=== PATIENT | female | born 1940 | race Caucasian/White ===

== ENCOUNTER → 2017-12-18 | Outpatient (CLI) | payer MEDICARE ==
--- NOTE | 2017-12-18 09:46 | Diagnostic Imaging Report ---
INDICATION: Lump in the left back at the level of the mid spine. FINDINGS: Sonographic interrogation of the area of lump was performed. No solid or cystic mass is identified by ultrasound. IMPRESSION: No sonographic abnormality is detected. Dictated by: Dictated on workstation # [id number]
== END ==
LOC: RAD 08:56
PROVIDERS: ATTEND Nurse Practitioner Family
DX: R22.2 Localized swelling, mass and lump, trunk (principal)
CPT/HCPCS: 76999

== ENCOUNTER 2019-06-04 19:33 | Emergency (ER) | payer MEDICARE | END 2019-06-04 23:46 | disposition home or self-care (01) | LOC: ER 19:33 ==

== ENCOUNTER 2021-09-03 08:48 | Emergency (ER) | payer MEDICARE, OTHER ==
[~2021-09-03] VITALS: Ht 152 cm; Wt 54.0 kg
[~2021-09-03 08:48] MED LIST: ACHD5005 PO
--- OUTSIDE RECORDS SUMMARY | 2021-09-03 08:54 | XMS REPORT | Clinical Summary ---
Author Author [email or web address] Address Unknown Phone Unavailable Care Team Providers Care Short Goods Drier Name Role Phone PCP Unavailable Allergies No known active allergies Medications End Date Status Medication Sig Dispensed Refills Start Date Active desonide (DESOWEN) 0.05 % 0 cream 5 Active ranitidine (ZANTAC) 150 TAKE ONE 60 tablet 3 MG tablet TABLET BY 6 MOUTH TWICE DAILY FOR HIVES Active cetirizine (ZYRTEC) 10 MG TAKE ONE 60 tablet 2 tablet TABLET BY 6 MOUTH TWICE DAILY Active Problems Problem Noted Date Urticaria, unspecified 09/02/2014 Family History Medical History Relation Name Comments Coronary art dis Father Osteoporosis Mother Relation Name Status Comments Father Mother Social History Date Tobacco Use Types Packs/Day Years Used Never Smoker Smokeless Tobacco: Never Used Comments Alcohol Use Standard Drinks/Week No 0 (1 standard drink = 0.6 o z pure alcohol) Sex Assigned at Date Recorded Not on file Last Filed Vital Signs Reading Time Taken Comments Vital Sign 108/64 09/02/2014 11:01 AM CDT Blood Pressure 91 09/02/2015 2:03 PM CDT Pulse 36.4 C (97.5 F) 09/02/2014 11:01 AM CDT Temperature 20 09/02/2015 2:03 PM CDT Respiratory Rate 99% 09/02/2015 2:03 PM CDT Oxygen Saturation - - Inhaled Oxygen Concentration 59 kg (130 lb) 09/02/2015 2:03 PM CDT Weight 152.4 cm (5') 09/02/2015 2:03 PM CDT Height 25.39 09/02/2015 2:03 PM CDT Body Mass Index Plan of Treatment Health Maintenance Due Date Last Done Comments COVID-19 Vaccine (1) 1954 Annual Wellness Visit 1960 Hepatitis C Screening 1960 DTaP,Tdap,and Td Vaccines 1961 (1 - Tdap) Zoster Vaccine (1 of 2) 1992 Pneumo-Vaccine: 65+Yrs (1 2007 of 1 - PPSV23) Influenza Vaccine (#1) 2021 HIB Vaccines Aged Out No longer eligible based on patient's age to complete this topic IPV Vaccines Aged Out No longer eligible based on patient's age to complete this topic Meningococcal Vaccine Aged Out No longer eligib le based on patient's age to complete this topic Pneumo-Vaccine: Peds (0-5 Aged Out No longer el igible based on patient's age to Yrs) & At-Risk Patients complete this topic (6-64 Yrs) Rotavirus Vaccines Aged Out No longer eligible based on patient's age to complete this topic Results Not on filefrom Last 3 Months Insurance Type Payer Benefit Subscriber ID Effective Phone Address Plan / Dates Group Medicare MEDICARE MEDICARE [id number] 2007- [address] Present [address] [place] [address] [facility] 65 [id number] 2013-P [phone] [address] (NEVER resent [facility]) [id number] Advance Directives For more information, please contact: [phone] Patient Gut Sorter Explanation Type Date Recorded Advance Directives and Living Will Power of Coat Maker
--- NOTE | 2021-09-03 10:33 | ED GI ---
General Stated Complaint: NAUSEA,DIARRHEA Source of Information: Patient Exam Limitations: No Limitations (JENS KIRKLAND APRN) History of Present Illness Date Seen by Provider: Sep 03, 2021 Time Seen by Provider: 10:32 Initial Comments To ER with some nausea earlier this morning as well as one episode of loose stool with abdominal cramping. She has no symptoms currently. No fever no chills no body aches. She is Covid vaccinated. Timing/Duration: 1-2 Days Severity/Quality: Moderate Location: Generalized Abdomen Radiation: No Radiation Activities at Onset: None Associated Symptoms: Denies Symptoms (JENS KIRKLAND APRN) Allergies and Home Medications Allergies Coded Allergies: No Allergy Information Available (Unverified , 06/04/19) Patient Home Medication List Home Medication List Reviewed: Yes (JENS KIRKLAND APRN) Ciprofloxacin HCl (Ciprofloxacin HCl) 500 Mg Tablet, 500 MG PO BID Prescribed by: JENS KIRKLAND on 09/03/21 1228 Hydrocodone Bit/Acetaminophen (Lortab 5 Mg Tablet) 1 Tab Tab, 1 EACH PO Q4H PRN for PAIN-MODERATE Prescribed by: GUILLE AYALA on 06/04/192134 Metronidazole (Flagyl) 500 Mg Tablet, 500 MG PO TID Prescribed by: JENS KIRKLAND on 09/03/21 1228 Review of Systems Review of Systems Constitutional: see HPI EENTM: No Symptoms Reported Respiratory: No Symptoms Reported Cardiovascular: No Symptoms Reported Gastrointestinal: See HPI, Abdominal Pain Genitourinary: No Symptoms Reported Musculoskeletal: no symptoms reported Skin: no symptoms reported Psychiatric/Neurological: No Symptoms Reported Endocrine: No Symptoms Reported Hematologic/Lymphatic: No Symptoms Reported (JENS KIRKLAND APRN) Past Etrvfim-Kfxohq-Mntbvv Hx Past Medical History Surgeries: Yes Hysterectomy Respiratory: No Cardiac: No Neurological: No DISH MAKER History: Hysterectomy, Menopausal Genitourinary: No Gastrointestinal: No Musculoskeletal: No Endocrine: No HEENT: No Cancer: No Psychosocial: No Integumentary: No Blood Disorders: No (JENS KIRKLAND APRN) Physical Exam Vital Signs Vital Signs - First Documented 09/03/21 09:35 Temp 36.4 Pulse 120 Resp 20 B/P (MAP) 135/78 (97) Pulse Ox 99 O2 Delivery Room Air (DENISE NAYLOR MD) Vital Signs Capillary Refill : (JENS KIRKLAND APRN) Height/Weight/BMI Height: 5'0" Weight: 123lbs. 0oz. 55.613153aa; BMI Method:Actual General Appearance: WD/WN, no apparent distress Respiratory: lungs clear, normal breath sounds, no respiratory distress, no accessory muscle use Cardiovascular: regular rate, rhythm, no murmur Gastrointestinal: normal bowel sounds, non tender, soft Extremities: normal range of motion, non-tender Neurologic/Psychiatric: alert, normal mood/affect, oriented x 3 Skin: normal color, warm/dry (JENS KIRKLAND APRN) Progress/Results/Core Measures Results/Orders Lab Results Laboratory Tests Test 09/03/21 09:43 09/03/21 10:30 09/03/21 11:30 Range/Units SARS-CoV-2 RNA (RT-PCR) Not Detected Not Detecte White Blood Count 19.1 H 4.3-11.0 10^3/uL Red Blood Count 5.08 3.80-5.11 10^6/uL Hemoglobin 13.5 11.5-16.0 g/dL Hematocrit 42 35-52 % Mean Corpuscular Volume 84 80-99 fL Mean Corpuscular Hemoglobin 27 25-34 pg Mean Corpuscular Hemoglobin Concent 32 32-36 g/dL Red Cell Distribution Width 14.5 10.0-14.5 % Platelet Count 396 130-400 10^3/uL Mean Platelet Volume 9.3 9.0-12.2 fL Immature Granulocyte % (Auto) 1 % Neutrophils (%) (Auto) 86 H 42-75 % Lymphocytes (%) (Auto) 7 L 12-44 % Monocytes (%) (Auto) 6 0-12 % Eosinophils (%) (Auto) 0 0-10 % Basophils (%) (Auto) 1 0-10 % Neutrophils # (Auto) 16.3 H 1.8-7.8 10^3/uL Lymphocytes # (Auto) 1.3 1.0-4.0 10^3/uL Monocytes # (Auto) 1.2 H 0.0-1.0 10^3/uL Eosinophils # (Auto) 0.1 0.0-0.3 10^3/uL Basophils # (Auto) 0.1 0.0-0.1 10^3/uL Immature Granulocyte # (Auto) 0.1 0.0-0.1 10^3/uL Neutrophils % (Manual) 90 % Lymphocytes % (Manual) 4 % Monocytes % (Manual) 6 % Eosinophils % (Manual) 0 % Basophils % (Manual) 0 % Band Neutrophils 0 % Blood Morphology Comment NORMAL Sodium Level 137 135-145 MMOL/L Potassium Level 4.0 3.6-5.0 MMOL/L Chloride Level 101 98-107 MMOL/L Carbon Dioxide Level 24 21-32 MMOL/L Anion Gap 12 5-14 MMOL/L Blood Urea Nitrogen 16 7-18 MG/DL Creatinine 0.92 0.60-1.30 MG/DL Estimat Glomerular Filtration Rate 59 BUN/Creatinine Ratio 17 Glucose Level 114 H 70-105 MG/DL Calcium Level 9.9 8.5-10.1 MG/DL Corrected Calcium 9.6 8.5-10.1 MG/DL Magnesium Level 2.1 1.6-2.4 MG/DL Total Bilirubin 0.7 0.1-1.0 MG/DL Aspartate Amino Transf (AST/SGOT) 19 5-34 U/L Alanine Aminotransferase (ALT/SGPT) 16 0-55 U/L Alkaline Phosphatase 98 40-136 U/L Total Protein 8.4 H 6.4-8.2 GM/DL Albumin 4.4 3.2-4.5 GM/DL Urine Color YELLOW Urine Clarity CLEAR Urine pH 7.5 5-9 Urine Specific [place] 1.015 L 1.016-1.022 Urine Protein NEGATIVE NEGATIVE Urine Glucose (UA) NEGATIVE NEGATIVE Urine Ketones TRACE H NEGATIVE Urine Nitrite NEGATIVE NEGATIVE Urine Bilirubin NEGATIVE NEGATIVE Urine Urobilinogen 0.2 < = 1.0 MG/DL Urine Leukocyte Esterase NEGATIVE NEGATIVE Urine RBC (Auto) NEGATIVE NEGATIVE Urine RBC NONE /HPF Urine WBC NONE /HPF Urine Squamous Epithelial Cells 2-5 /HPF Urine Crystals NONE /LPF Urine Bacteria NEGATIVE /HPF Urine Casts NONE /LPF Urine Mucus NEGATIVE /LPF Urine Culture Indicated NO (DENISE NAYLOR MD) My Orders Orders - DENISE NAYLOR MD Cbc With Automated Diff (09/03/21 09:39) Comprehensive Metabolic Panel (09/03/21 09:39) Magnesium (09/03/21 09:39) Ua Culture If Indicated (09/03/21 09:39) Ed Iv/Invasive Line Start (09/03/21 09:39) Manual Differential (09/03/21 10:30) (DENISE NAYLOR MD) Medications Given in ED Current Medications Medications Dose Ordered Sig/Jem Route Start Time Stop Time Status Last Admin Dose Admin Ceftriaxone Sodium 1000 mg/ Sterile Water 10 ml @ 200 mls/hr ONCE ONCE IV 09/03/21 12:30 09/03/21 12:32 DC 09/03/21 12:48 200 MLS/HR Metronidazole 500 mg ONCE ONCE PO 09/03/21 12:30 09/03/21 12:31 DC 09/03/21 12:49 500 MG (DENISE NAYLOR MD) Vital Signs/I&O 09/03/21 09/03/21 09:35 12:55 Temp 36.4 Pulse 120 88 Resp 20 18 B/P (MAP) 135/78 (97) 146/88 Pulse Ox 99 97 O2 Delivery Room Air Room Air (DENISE NAYLOR MD) Departure Communication (Admissions) 1151-I recommended IV fluids but the patient declined. Did a CT scan which we tried to do with IV contrast but the patient refused that as well. As such we will do the CT without contrast. 1215-CT mentions possibility of choledocholithiasis given the prominence of the common bile duct however her labs do not support this and she is nontender to the right upper quadrant. However, she did have some right shoulder blade pain a few days ago. She will need an outpatient gallbladder ultrasound. In the meantime we will treat with Cipro/Flagyl for sigmoid diverticulitis. She has no abdominal pain at this time, minimal tenderness to the left lower quadrant. No tenderness to the right upper quadrant. (JENS KIRKLAND APRN) Impression Primary Impression: Sigmoid diverticulitis Additional Impression: Cholelithiasis Disposition: 01 HOME, SELF-CARE Condition: Stable Departure-Patient Inst. Decision time for Depature: 12:16 (JENS KIRKLAND APRN) Referrals: PRINCE BERG MD (PCP/Family) Primary Care Physician Patient Instructions: Diverticulitis, Gallstones ED Add. Discharge Instructions: 1. Take the antibiotics as directed. Return to ER for any fevers chills vomiting or intolerable pain. You need to follow-up with your primary care doctor next week to discuss an ultrasound of the gallbladder as you do have some stones within the gallbladder. Scripts Metronidazole (Flagyl) 500 Mg Tablet 500 MG PO TID, #21 TAB Prov: JENS KIRKLAND ATMOSPHERIC TECHNICIAN 09/03/21 Ciprofloxacin HCl (Ciprofloxacin HCl) 500 Mg Tablet 500 MG PO BID, #14 TAB Prov: JENS KIRKLAND ATMOSPHERIC TECHNICIAN 09/03/21 ATTENDING PHYSICIAN NOTE: I was physically present as attending physician in the emergency department during the care of this patient. After reviewing chief complaint initial orders were entered. Care was then assumed by Jens Kirkland NP. I was not directly involved in the decision making or delivery of care for this patient after placing initial orders. (DENISE NAYLOR MD) JENS KIRKLAND APRN Sep 03, 2021 10:33 DENISE NAYLOR MD Sep 03, 2021 17:16
[2021-09-03 10:36] LABS: BASOPHILS # (AUTO) 0.1 10^3/uL (0.0-0.1); BASOPHILS % (AUTO) 1 % (0-10); EOSINOPHILS # (AUTO) 0.1 10^3/uL (0.0-0.3); EOSINOPHILS % (AUTO) 0 % (0-10); HEMATOCRIT 42 % (35-52); HEMOGLOBIN 13.5 g/dL (11.5-16.0); LYMPHOCYTES # (AUTO) 1.3 10^3/uL (1.0-4.0); LYMPHOCYTES % (AUTO) 7 % (12-44); MEAN CORPUSCULAR HEMOGLOBIN 27 pg (25-34); MEAN CORPUSCULAR HGB CONC 32 g/dL (32-36); MEAN CORPUSCULAR VOLUME 84 fL (80-99); MEAN PLATELET VOLUME 9.3 fL (9.0-12.2); MONOCYTES # (AUTO) 1.2 10^3/uL (0.0-1.0); MONOCYTES % (AUTO) 6 % (0-12); NEUTROPHILS # (AUTO) 16.3 10^3/uL (1.8-7.8); NEUTROPHILS % (AUTO) 86 % (42-75); PLATELET COUNT 396 10^3/uL (130-400); WHITE BLOOD COUNT 19.1 10^3/uL (4.3-11.0)
[2021-09-03 10:48] LABS: ALBUMIN 4.4 GM/DL (3.2-4.5)
[2021-09-03 10:49] LABS: CALCIUM 9.9 MG/DL (8.5-10.1)
[2021-09-03 10:50] LABS: TOTAL PROTEIN 8.4 GM/DL (6.4-8.2)
[2021-09-03 10:52] LABS: BILIRUBIN,TOTAL 0.7 MG/DL (0.1-1.0)
[2021-09-03 10:54] LABS: CREATININE SERUM 0.92 MG/DL (0.60-1.30)
[2021-09-03 10:57] LABS: MAGNESIUM 2.1 MG/DL (1.6-2.4)
[2021-09-03] MEDS ORDERED: NS IV 500 ML 500 ML IV SCH (11:00)
[2021-09-03 11:31] LABS: BAND NEUTROPHILS 0 %; BASOPHILS % (MANUAL) 0 %; EOSINOPHILS % (MANUAL) 0 %; LYMPHOCYTES % (MANUAL) 4 %; MONOCYTES % (MANUAL) 6 %; NEUTROPHILS % (MANUAL) 90 %; RBC MORPH NORMAL
[2021-09-03 11:36] LABS: BILIRUBIN,URINE NEGATIVE (NEGATIVE); CLARITY,URINE CLEAR; COLOR,URINE YELLOW; GLUCOSE, URINE (UA) NEGATIVE (NEGATIVE); KETONES,URINE TRACE (NEGATIVE); LEUKOCYTE ESTERASE ,URINE NEGATIVE (NEGATIVE); NITRITE,URINE NEGATIVE (NEGATIVE); PH,URINE 7.5 (5-9); PROTEIN,URINE NEGATIVE (NEGATIVE)
[2021-09-03 11:45] LABS: BACTERIA,URINE NEGATIVE /HPF
[2021-09-03] MEDS ORDERED: HOLD METFORMIN - RECEIVED CONTRAST 20 ML VIAL IV SCH (12:00)
[2021-09-03] MEDS ORDERED: NS 100 ML (IVPB) BAG IV ONE (12:00)
[2021-09-03] MEDS ORDERED: IOHEXOL 350 MG/ML 100 ML (OMNIPAQUE 350) VIAL IV ONE (12:00)
--- NOTE | 2021-09-03 12:13 | Diagnostic Imaging Report ---
PROCEDURE: CT abdomen and pelvis without contrast. TECHNIQUE: Multiple contiguous axial images were obtained through the abdomen and pelvis without the use of intravenous contrast. Auto Exposure Controls were utilized during the CT exam to meet ALARA standards for radiation dose reduction. INDICATION: Clammy and sweaty with diarrhea, similar symptoms last week. Nausea. EXAMINATION: CT abdomen pelvis without contrast. Contrast not given as patient refused. FINDINGS: There is fat stranding and inflammatory change about the sigmoid colon with a few diverticuli in the region noted findings likely due to diverticulitis. There is no evidence for adjacent free air or abscess. The appendix is not seen but there is no focal inflammation in the right lower quadrant. There is fluid in the distal esophagus perhaps due to reflux. A small hiatal hernia suspected. The abdominal viscera limited given lack of contrast. No gross abnormality appreciated within the spleen, liver, adrenal glands or pancreas. There are multiple hyperdensities within the gallbladder consistent with stones better characterized sonographically if clinically indicated. The common duct appears slightly distended measuring up to a centimeter in size. Choledocholithiasis not excluded on this examination. The kidneys appear unremarkable. The osseous structures demonstrate old pelvic fractures with no acute osseous abnormality. There is degenerative disease within the visualized spine. Visualized lung bases demonstrate chronic atelectasis or scarring in the medial lower lungs. IMPRESSION: 1. Inflammatory change about the sigmoid colon suspicious for acute diverticulitis. 2. Stones within the gallbladder with choledocholithiasis not excluded given prominence of the common duct. Sonographic characterization could provide better evaluation as clinically indicated. Other findings as above. Dictated by: Dictated on workstation # [id number]
[2021-09-03] MEDS ORDERED: METR500T PO (12:28)
[2021-09-03] MEDS ORDERED: CIPR500T5 PO (12:28)
[2021-09-03] MEDS ORDERED: cefTRIAXone 1,000 MG in WATER (STERILE) FOR INJECTION 10 ML IV ONE (12:30)
[2021-09-03] MEDS ORDERED: metroNIDAZOLE 500 MG (FLAGYL) TAB PO ONE (12:30)
[2021-09-03 12:55] VITALS: BP 146/88
== END 2021-09-03 12:55 | disposition home or self-care (01) ==
LOC: EDUNIT# 08:48 → ER 08:50
DX: K57.32 Diverticulitis of large intestine without perforation or abscess without bleeding (principal); K80.20 Calculus of gallbladder without cholecystitis without obstruction; Z20.822 Contact with and (suspected) exposure to COVID-19
CPT/HCPCS: 36415; 74176; 80053; 81000; 83735; 85007; 85027; 87636

== ENCOUNTER 2021-09-06 08:58 | Emergency (ER) | payer MEDICARE, OTHER ==
[~2021-09-06] VITALS: Ht 152.4 cm; Wt 54.5 kg
[~2021-09-06 08:58] MED LIST changes: +CIPR500T5 PO; +METR500T PO
[2021-09-06 09:17] LABS: BASOPHILS # (AUTO) 0.1 10^3/uL (0.0-0.1); BASOPHILS % (AUTO) 1 % (0-10); EOSINOPHILS # (AUTO) 0.3 10^3/uL (0.0-0.3); EOSINOPHILS % (AUTO) 3 % (0-10); HEMATOCRIT 39 % (35-52); HEMOGLOBIN 12.3 g/dL (11.5-16.0); LYMPHOCYTES # (AUTO) 0.9 10^3/uL (1.0-4.0); LYMPHOCYTES % (AUTO) 8 % (12-44); MEAN CORPUSCULAR HEMOGLOBIN 27 pg (25-34); MEAN CORPUSCULAR HGB CONC 32 g/dL (32-36); MEAN CORPUSCULAR VOLUME 84 fL (80-99); MEAN PLATELET VOLUME 9.5 fL (9.0-12.2); MONOCYTES # (AUTO) 0.6 10^3/uL (0.0-1.0); MONOCYTES % (AUTO) 6 % (0-12); NEUTROPHILS % (AUTO) 83 % (42-75); PLATELET COUNT 408 10^3/uL (130-400); WHITE BLOOD COUNT 10.9 10^3/uL (4.3-11.0)
--- NOTE | 2021-09-06 09:30 | ED GI ---
General Chief Complaint: Abdominal/GI Problems Stated Complaint: ABD PAIN,DIRRHEA Nursing Triage Note: TO ED PER EMS FROM HOME WAS SEEN IN ED ON SAT FOR DAIRRHEA DX WITH GALLSTONE AND DIVERTICULITIS AND SARTED ON MEDS. FLUIDS INFUSING ON ADMIT. TO ED. BY EMS. Source of Information: Patient, EMS, Old Records Exam Limitations: No Limitations History of Present Illness Date Seen by Provider: Sep 06, 2021 Time Seen by Provider: 08:59 Initial Comments This is 80-year-old woman presents to the emergency room via EMS with complaints of diarrhea and vomiting. She presented to the emergency room on September 03 with abdominal pain. She was diagnosed with sigmoid diverticulitis and started on Flagyl and Cipro. There was concern for cholelithiasis on the CT scan as well. She has not yet had an ultrasound. Today she states her diarrhea has not improved. She still has persistent watery brown diarrhea without any bleeding. She is no longer in any pain. She presents to the ER because she started vomiting this morning. EMS started IV fluids and administered Zofran 4 mg IV. She is otherwise in relatively good health and takes no other medications. A few days ago when she was having pain, she reports the pain was in her upper abdomen and radiating to her right shoulder consistent with gallbladder symptoms. Allergies and Home Medications Allergies Coded Allergies: No Allergy Information Available (Unverified , 06/04/19) Patient Home Medication List Home Medication List Reviewed: Yes Ciprofloxacin HCl (Ciprofloxacin HCl) 500 Mg Tablet, 500 MG PO BID Prescribed by: JENS OLGUIN on 09/03/21 1228 Dicyclomine HCl (Dicyclomine HCl) 20 Mg Tablet, 20 MG PO QID PRN for DIARRHEA Prescribed by: DENISE MULLEN on 09/06/21 1222 Hydrocodone Bit/Acetaminophen (Lortab 5 Mg Tablet) 1 Tab Tab, 1 EACH PO Q4H PRN for PAIN-MODERATE Prescribed by: GUILLE AYALA on 06/04/19 213 Metronidazole (Flagyl) 500 Mg Tablet, 500 MG PO TID Prescribed by: JENS OLGUIN on 09/03/21 1228 Ondansetron (Ondansetron Odt) 4 Mg Tab.rapdis, 4 MG PO Q4H PRN for NAUSEA/VOMITING Prescribed by: DENISE MULLEN on 09/06/21 1222 Review of Systems Review of Systems Constitutional: no symptoms reported EENTM: No Symptoms Reported Respiratory: No Symptoms Reported Cardiovascular: No Symptoms Reported Gastrointestinal: See HPI Genitourinary: No Symptoms Reported Musculoskeletal: no symptoms reported Skin: no symptoms reported Psychiatric/Neurological: No Symptoms Reported Endocrine: No Symptoms Reported Past Tpinmmz-Whvyvh-Jekbgo Hx Patient Social History Tobacco Use?: No Substance use?: No Alcohol Use?: No Immunizations Up To Date First/Initial COVID19 Vaccinat: 2020 Second COVID19 Vaccination Ilya: 2020 Past Medical History Surgeries: Yes Hysterectomy Respiratory: No Cardiac: No Neurological: No [employer] History: Hysterectomy, Menopausal Genitourinary: No Gastrointestinal: No Musculoskeletal: No Endocrine: No HEENT: No Cancer: No Psychosocial: No Integumentary: No Blood Disorders: No Physical Exam Vital Signs Vital Signs - First Documented 09/06/21 09/06/21 09:00 12:39 Temp 37.0 Pulse 110 Resp 18 B/P (MAP) 147/81 (103) Pulse Ox 98 O2 Delivery Room Air Capillary Refill : Less Than 3 Seconds Height/Weight/BMI Height: 5'0" Weight: 123lbs. 0oz. 55.805990kx; 23.00 BMI Method:Actual General Appearance: WD/WN, no apparent distress HEENT: normal ENT inspection, pharynx normal Neck: normal inspection Respiratory: lungs clear, normal breath sounds, no respiratory distress Cardiovascular: regular rate, rhythm, no edema, no murmur Gastrointestinal: normal bowel sounds, non tender, soft; No distended Extremities: normal inspection, no pedal edema Neurologic/Psychiatric: stave mill hand II-XII nml as tested, no motor/sensory deficits, alert, normal mood/affect, oriented x 3 Skin: normal color, warm/dry Progress/Results/Core Measures Results/Orders Lab Results Laboratory Tests Test 09/06/21 07:11 09/06/21 10:17 09/06/21 11:19 Range/Units White Blood Count 10.9 4.3-11.0 10^3/uL Red Blood Count 4.62 3.80-5.11 10^6/uL Hemoglobin 12.3 11.5-16.0 g/dL Hematocrit 39 35-52 % Mean Corpuscular Volume 84 80-99 fL Mean Corpuscular Hemoglobin 27 25-34 pg Mean Corpuscular Hemoglobin Concent 32 32-36 g/dL Red Cell Distribution Width 14.4 10.0-14.5 % Platelet Count 408 H 130-400 10^3/uL Mean Platelet Volume 9.5 9.0-12.2 fL Immature Granulocyte % (Auto) 0 % Neutrophils (%) (Auto) 83 H 42-75 % Lymphocytes (%) (Auto) 8 L 12-44 % Monocytes (%) (Auto) 6 0-12 % Eosinophils (%) (Auto) 3 0-10 % Basophils (%) (Auto) 1 0-10 % Neutrophils # (Auto) 9.0 H 1.8-7.8 10^3/uL Lymphocytes # (Auto) 0.9 L 1.0-4.0 10^3/uL Monocytes # (Auto) 0.6 0.0-1.0 10^3/uL Eosinophils # (Auto) 0.3 0.0-0.3 10^3/uL Basophils # (Auto) 0.1 0.0-0.1 10^3/uL Immature Granulocyte # (Auto) 0.0 0.0-0.1 10^3/uL Sodium Level 137 135-145 MMOL/L Potassium Level 3.7 3.6-5.0 MMOL/L Chloride Level 105 98-107 MMOL/L Carbon Dioxide Level 20 L 21-32 MMOL/L Anion Gap 12 5-14 MMOL/L Blood Urea Nitrogen 11 7-18 MG/DL Creatinine 0.82 0.60-1.30 MG/DL Estimat Glomerular Filtration Rate 67 BUN/Creatinine Ratio 13 Glucose Level 104 70-105 MG/DL Calcium Level 9.0 8.5-10.1 MG/DL Corrected Calcium 9.1 8.5-10.1 MG/DL Magnesium Level 1.6 1.6-2.4 MG/DL Total Bilirubin 0.5 0.1-1.0 MG/DL Aspartate Amino Transf (AST/SGOT) 18 5-34 U/L Alanine Aminotransferase (ALT/SGPT) 16 0-55 U/L Alkaline Phosphatase 89 40-136 U/L C-Reactive Protein High Sensitivity 3.25 H 0.00-0.50 MG/DL Total Protein 7.5 6.4-8.2 GM/DL Albumin 3.9 3.2-4.5 GM/DL Urine Color YELLOW Urine Clarity CLEAR Urine pH 6.5 5-9 Urine Specific [place] 1.025 H 1.016-1.022 Urine Protein NEGATIVE NEGATIVE Urine Glucose (UA) NEGATIVE NEGATIVE Urine Ketones TRACE H NEGATIVE Urine Nitrite POSITIVE H NEGATIVE Urine Bilirubin NEGATIVE NEGATIVE Urine Urobilinogen 0.2 < = 1.0 MG/DL Urine Leukocyte Esterase NEGATIVE NEGATIVE Urine RBC (Auto) NEGATIVE NEGATIVE Urine RBC RARE /HPF Urine WBC NONE /HPF Urine Squamous Epithelial Cells RARE /HPF Urine Crystals NONE /LPF Urine Bacteria NEGATIVE /HPF Urine Casts NONE /LPF Urine Mucus NEGATIVE /LPF Urine Culture Indicated YES Stool Occult Blood Immunoassay NEGATIVE NEGATIVE Micro Results Microbiology 09/06/21 C. difficile GDH Antigen & Toxins - Final, Complete 09/06/21 Fecal Leukocyte Stain - Final, Complete 09/06/21 Stool Culture - Final, Complete 09/06/21 Urine Culture - Final, Complete NO GROWTH My Orders Orders - DENISE NAYLOR MD Cbc With Automated Diff (09/06/21 09:00) Comprehensive Metabolic Panel (09/06/21 09:00) Hs C Reactive Protein (09/06/21 09:00) Ua Culture If Indicated (09/06/21 09:00) Ed Iv/Invasive Line Start (09/06/21 09:00) Magnesium (09/06/21 09:06) Us Gallbladder 47021 (09/06/21 09:17) Urine Culture (09/06/21 10:17) Stool Culture (09/06/21 11:24) Fecal Wbc (09/06/21 11:24) Occult Blood Stool (09/06/21 11:24) C Difficile Ag + Toxin A/B. (09/06/21 11:25) Vital Signs/I&O 09/06/21 09/06/21 09:00 12:39 Temp 37.0 Pulse 110 100 Resp 18 18 B/P (MAP) 147/81 (103) 127/74 Pulse Ox 98 O2 Delivery Room Air Blood Pressure Mean: 103 Progress Progress Note : Progress Note Patient has a large gallstone but does not have acute cholecystitis at this time that require emergent surgery based on overall clinical presentation and ultrasound. She is not in any pain at this time. Prompt follow-up with a surg lamberto was recommended. She states she would like to follow-up with Dr. Goodson. See discharge instructions for further information. Stool studies were collected to further evaluate her diarrhea. Patient states Bentyl has worked well for her in the past for diarrhea and IBS symptoms. She would like to try that again. A prescription was provided. Diagnostic Imaging Diagonstic Imaging: Ultrasound Plain Films/CT/US/NM/MRI: abdomen Comments NAME: DELLA BARBA [facility] REC#: [id number] PT STATUS: DEP ER : 1940 PHYSICIAN: DENISE NAYLOR MD ADMIT DATE: 09/06/21/ER Signed Date of Exam:09/06/21 US GALLBLADDER [id number] INDICATION: Vomiting. Abnormal findings on CT with stones noted on CT imaging and choledocholithiasis also present. EXAMINATION: Ultrasound gallbladder on 09/06/2021. COMPARISON: Correlation is made to a CT of the abdomen and pelvis from 09/03/2021. FINDINGS: There is a large shadowing stone within the gallbladder which measures 3.9 cm in greatest dimension. The gallbladder wall is thickened, just over 0.3 cm in thickness. There is no pericholecystic fluid. No ascites. The common duct is dilated measuring up to 1 cm in size. A distal obstructive process is not excluded but not seen on this examination. The visualized aspects of the pancreas are unremarkable. The visualized aorta and IVC are unremarkable. The right kidney is 8.9 cm in length. There is no hydronephrosis. IMPRESSION: Large nonmobile stone within the gallbladder with mass less likely given the associated calcification. Choledocholithiasis is noted with a distal obstructive process not excluded. Additionally, there is gallbladder wall thickening. Clinical correlation for symptoms of acute cholecystitis would be recommended. MRCP could further characterize the duct and possible obstructing process as clinically indicated. Dictated by: Dictated on workstation # [id number] Dict: 09/06/21 1046 Trans: 09/06/21 1613 [id number] Interpreted by: KENNETH LEE MD Electronically signed by: KENNETH LEE MD 09/06/21 1613 Departure Impression Primary Impression: Nausea vomiting and diarrhea Additional Impression: Cholelithiasis Qualified Codes: K80.80 - Other cholelithiasis without obstruction Disposition: 01 HOME, SELF-CARE Condition: Improved Departure-Patient Inst. Decision time for Depature: 12:15 Referrals: PRINCE BERG MD (PCP/Family) Primary Care Physician SHAWN GOODSON MD Patient Instructions: Diarrhea in Adolescents and Adults, Nausea and Vomiting, Adult, Viral Gastroenteritis Add. Discharge Instructions: Drink plenty of clear liquids. Rehydration liquids such as Pedialyte or the generic equivalents are perfectly formulated for rehydration. Gradually advance your diet with small quantities of bland food as tolerated. Avoid fatty or greasy foods or dairy products until your diarrhea has resolved for about 48 hours. Complete your antibiotics as previously prescribed. You may increase your probiotic to 2 or 3 times daily. Use Bentyl as prescribed for diarrhea. Use Zofran as prescribed for nausea and vomiting. Your stool has been sent for culture. Results should be available in 2 or 3 days. This can be reviewed with your primary care provider. Call with questions or concerns. Return to the ER if you have worsening symptoms. Follow-up with your primary care provider if symptoms have not resolved by early next week. Although you do have a large gallstone, it does not appear to be contributing to your vomiting and diarrhea today. Follow-up with a general surgeon such as Dr. Goodson is recommended. His contact information is below for you. If you develop worsening symptoms, especially pain in the right upper abdomen, fever, uncontrolled vomiting, etc. please return to the ER for reevaluation. All discharge instructions reviewed with patient and/or family. Voiced underst anding. Scripts Dicyclomine HCl (Dicyclomine HCl) 20 Mg Tablet 20 MG PO QID PRN for DIARRHEA, #10 TAB Prov: DENISE NAYLOR MD 09/06/21 Ondansetron (Ondansetron Odt) 4 Mg Tab.rapdis 4 MG PO Q4H PRN for NAUSEA/VOMITING, #10 TAB Prov: DENISE NAYLOR MD 09/06/21 Copy Copies To 1: SHAWN GOODSON MD Copies To 2: PRINCE BERG MD, JOSHUA T MD Sep 06, 2021 09:30
[2021-09-06 09:39] LABS: ALBUMIN 3.9 GM/DL (3.2-4.5); POTASSIUM 3.7 MMOL/L (3.6-5.0)
[2021-09-06 09:42] LABS: TOTAL PROTEIN 7.5 GM/DL (6.4-8.2)
[2021-09-06 09:43] LABS: BILIRUBIN,TOTAL 0.5 MG/DL (0.1-1.0)
[2021-09-06 09:45] LABS: CREATININE SERUM 0.82 MG/DL (0.60-1.30)
[2021-09-06 09:48] LABS: MAGNESIUM 1.6 MG/DL (1.6-2.4)
[2021-09-06 10:32] LABS: BILIRUBIN,URINE NEGATIVE (NEGATIVE); CLARITY,URINE CLEAR; COLOR,URINE YELLOW; GLUCOSE, URINE (UA) NEGATIVE (NEGATIVE); KETONES,URINE TRACE (NEGATIVE); LEUKOCYTE ESTERASE ,URINE NEGATIVE (NEGATIVE); NITRITE,URINE POSITIVE (NEGATIVE); PH,URINE 6.5 (5-9); PROTEIN,URINE NEGATIVE (NEGATIVE)
[2021-09-06 10:42] LABS: BACTERIA,URINE NEGATIVE /HPF; RBC,URINE RARE /HPF; SQUAMOUS EPITHELIAL CELL,UR RARE /HPF
--- NOTE | 2021-09-06 10:54 | Diagnostic Imaging Report ---
INDICATION: Vomiting. Abnormal findings on CT with stones noted on CT imaging and choledocholithiasis also present. EXAMINATION: Ultrasound gallbladder on 09/06/2021. COMPARISON: Correlation is made to a CT of the abdomen and pelvis from 09/03/2021. FINDINGS: There is a large shadowing stone within the gallbladder which measures 3.9 cm in greatest dimension. The gallbladder wall is thickened, just over 0.3 cm in thickness. There is no pericholecystic fluid. No ascites. The common duct is dilated measuring up to 1 cm in size. A distal obstructive process is not excluded but not seen on this examination. The visualized aspects of the pancreas are unremarkable. The visualized aorta and IVC are unremarkable. The right kidney is 8.9 cm in length. There is no hydronephrosis. IMPRESSION: Large nonmobile stone within the gallbladder with mass less likely given the associated calcification. Choledocholithiasis is noted with a distal obstructive process not excluded. Additionally, there is gallbladder wall thickening. Clinical correlation for symptoms of acute cholecystitis would be recommended. MRCP could further characterize the duct and possible obstructing process as clinically indicated. Dictated by: Dictated on workstation # [id number]
[2021-09-06] MEDS ORDERED: ONDA4TAB11 PO (12:22)
[2021-09-06] MEDS ORDERED: DICY20TA10 PO (12:22)
[2021-09-06 12:39] VITALS: BP 127/74
== END 2021-09-06 12:39 | disposition home or self-care (01) ==
LOC: ER 08:59
DX: K80.20 Calculus of gallbladder without cholecystitis without obstruction (principal); R19.7 Diarrhea, unspecified
CPT/HCPCS: 36415; 76705; 80053; 81000; 82274; 83735; 85025; 86141; 87015; 87045; 87046; 87088; 87324; 87449; 87899; 89055

== ENCOUNTER → 2021-09-27 | Outpatient (CLI) | payer MEDICARE, OTHER ==
[~2021-09-27] MED LIST changes: +DICY20TA10 PO; +ONDA4TAB11 PO
--- NOTE | 2021-09-27 17:44 | Diagnostic Imaging Report ---
EXAMINATION: MRI of the abdomen without contrast. MRCP TECHNIQUE: Multiplanar, multisequence MR images of the abdomen were obtained without intravenous contrast including 3D MIP MRCP images. HISTORY: Choledocholithiasis, biliary ductal dilatation. COMPARISON: Ultrasound from 09/06/2021, CT from 09/03/2021. FINDINGS: Liver: Normal in signal and morphology. Gallbladder and Bile Ducts: A large gallstone is present which measures 3.5 cm. Mild dilatation of the common bile duct measuring 0.8 cm. No filling defects are seen within the biliary tree. No intrahepatic biliary duct dilatation. Pancreas: Normal in signal and morphology. No focal lesion or duct dilation. Kidneys: A left renal cyst is present which requires no follow-up. Adrenal glands: Normal in configuration. No nodule. Spleen: Normal. Lymph Nodes: No abdominal lymphadenopathy. Other: No ascites. IMPRESSION: 1. Cholelithiasis with a 3.5 cm gallstone. 2. Mild dilatation of the common bile duct without filling defect or visualized obstructing mass. Dictated by: Dictated on workstation # [id number]
== END ==
LOC: RAD 13:44
PROVIDERS: ATTEND Surgery
DX: K80.20 Calculus of gallbladder without cholecystitis without obstruction (principal); K80.80 Other cholelithiasis without obstruction; K83.8 Other specified diseases of biliary tract
CPT/HCPCS: 74181

== ENCOUNTER → 2021-09-30 | Outpatient (CLI) | payer MEDICARE, OTHER ==
--- NOTE | 2021-09-30 10:01 | Diagnostic Imaging Report ---
EXAMINATION: Abdomen 2 view HISTORY: ABD PAIN COMPARISON: MRCP 09/27/2021 FINDINGS: There is a moderate amount of gas and stool throughout the colon. Nonobstructive bowel gas pattern. No radiopaque foreign body. The lung bases are clear. The osseous structures are intact. IMPRESSION: Moderate stool burden without other acute abnormality in the abdomen. Dictated by: Dictated on workstation # [id number]
== END ==
LOC: RAD 09:06
PROVIDERS: ATTEND Nurse Practitioner Family
DX: R10.9 Unspecified abdominal pain (principal)
CPT/HCPCS: 74019

== ENCOUNTER → 2022-06-09 | Outpatient (CLI) | payer MEDICARE, OTHER ==
[~2022-06-09] MED LIST changes: +DICY20TA PO; -DICY20TA10 PO
--- NOTE | 2022-06-09 10:37 | Diagnostic Imaging Report ---
INDICATION: Back pain. TECHNIQUE: PA and lateral chest obtained at 09:17 a.m. COMPARISON: There is no prior study for comparison. FINDINGS: Heart and mediastinal silhouette are normal in appearance. Lungs appear clear. There is no pneumothorax or pleural fluid. There are diffuse degenerative changes in the thoracic spine. There is mild loss of height of multiple midthoracic vertebrae of uncertain chronicity. IMPRESSION: No acute infiltrate or pneumothorax or pleural fluid. Exaggerated kyphosis with loss of height of multiple midthoracic vertebrae of uncertain age. Dictated by: Dictated on workstation # [id number]
--- NOTE | 2022-06-09 10:55 | Diagnostic Imaging Report ---
HISTORY: Thoracic back pain. Chest pain. TECHNIQUE: 3 views of the thoracic spine COMPARISON: None FINDINGS: There is markedly exaggerated kyphosis of the thoracic spine and lordosis of the lumbar spine. There is mild right convex curvature of the lower thoracic spine. There is chronic anterior wedging of the thoracic spine with no definite acute fracture seen. There are marked degenerative changes in the midthoracic spine. No spondylolisthesis is seen. Bone mineral density overall appears low. IMPRESSION: 1. Degenerative changes and severe kyphosis of the thoracic spine with no acute fracture seen. Dictated by: Dictated on workstation # [id number]
== END ==
LOC: RAD 08:54
PROVIDERS: ATTEND Nurse Practitioner Family
DX: M47.814 Spondylosis without myelopathy or radiculopathy, thoracic region (principal); M51.34 Other intervertebral disc degeneration, thoracic region; M40.294 Other kyphosis, thoracic region
CPT/HCPCS: 71046; 72072

== ENCOUNTER → 2022-06-12 | Outpatient (CLI) | payer MEDICARE, OTHER ==
--- NOTE | 2022-06-12 12:02 | Diagnostic Imaging Report ---
PROCEDURE: US Gallbladder. TECHNIQUE: Multiple real-time grayscale images were obtained over the right upper quadrant in various projections. INDICATION: Right upper quadrant pain. FINDINGS: Liver parenchyma appears normal. Long axis approximately 13 cm. Bile ducts are not dilated. Common duct measures 6 mm. Gallbladder shows a large shadowing gallstone. The gallbladder wall does appear slightly thickened at 3 to 4 mm. No pericholecystic fluid. Portion of the pancreas visualized is normal, though significant portion of the tail of pancreas obscured by bowel gas. The portal vein shows normal hepatopetal flow. No evidence of aortic aneurysm. Right kidney measures 8 x 3.4 x 5 cm. No hydronephrosis or calculi. There is no ascites. Negative Will sign. IMPRESSION: 1. Large gallstone with mild thickening gallbladder wall. 2. Detail limited due to bowel gas. Dictated by: Dictated on workstation # [id number]
== END ==
LOC: RAD 08:01
PROVIDERS: ATTEND Nurse Practitioner Family
DX: K80.80 Other cholelithiasis without obstruction (principal); K82.8 Other specified diseases of gallbladder
CPT/HCPCS: 76705

== ENCOUNTER 2023-01-26 13:09 | Emergency (ER) | payer MEDICARE, OTHER ==
[~2023-01-26] VITALS: Ht 149 cm; Wt 57.0 kg
[2023-01-26 14:45] LABS: BASOPHILS # (AUTO) 0.1 10^3/uL (0.0-0.1); BASOPHILS % (AUTO) 1 % (0-10); EOSINOPHILS % (AUTO) 0 % (0-10); HEMATOCRIT 38 % (35-52); HEMOGLOBIN 12.7 g/dL (11.5-16.0); LYMPHOCYTES # (AUTO) 0.8 10^3/uL (1.0-4.0); LYMPHOCYTES % (AUTO) 5 % (12-44); MEAN CORPUSCULAR HEMOGLOBIN 27 pg (25-34); MEAN CORPUSCULAR HGB CONC 33 g/dL (32-36); MEAN CORPUSCULAR VOLUME 81 fL (80-99); MEAN PLATELET VOLUME 9.3 fL (9.0-12.2); MONOCYTES % (AUTO) 6 % (0-12); NEUTROPHILS # (AUTO) 13.3 10^3/uL (1.8-7.8); NEUTROPHILS % (AUTO) 88 % (42-75); PLATELET COUNT 319 10^3/uL (130-400); WHITE BLOOD COUNT 15.1 10^3/uL (4.3-11.0)
[2023-01-26 14:50] LABS: MAGNESIUM 1.8 MG/DL (1.6-2.4)
[2023-01-26 14:58] LABS: LYMPHOCYTES % (MANUAL) 5 %; MONOCYTES % (MANUAL) 5 %; NEUTROPHILS % (MANUAL) 90 %; PLATELET ESTIMATE ADEQUATE; RBC MORPH NORMAL
[2023-01-26 15:40] LABS: BILIRUBIN,URINE NEGATIVE (NEGATIVE); CLARITY,URINE CLEAR; COLOR,URINE YELLOW; GLUCOSE, URINE (UA) NEGATIVE (NEGATIVE); KETONES,URINE 1+ (NEGATIVE); LEUKOCYTE ESTERASE ,URINE NEGATIVE (NEGATIVE); NITRITE,URINE NEGATIVE (NEGATIVE); PH,URINE 5.5 (5-9); PROTEIN,URINE NEGATIVE (NEGATIVE)
--- NOTE | 2023-01-26 15:44 | ED General ---
General Chief Complaint: Fever-Adult/Adol Stated Complaint: ABD PAIN Nursing Triage Note: PT AMB PT STATES HAS HAD FEVERS SINCE YESTERDAY AND IS DRY HEAVING AND NAUSEA Source of Information: Patient, Old Records Exam Limitations: No Limitations (DOMINGUEZ DRAKE) History of Present Illness Date Seen by Provider: Jan 26, 2023 Time Seen by Provider: 14:39 Initial Comments Mrs. Beasley is a 82 yo F with PMH of sigmoid diverticulitis and symptomatic cholelithiasis presents to the ED today with 24hr history of fever, muscle aches, anorexia and one episode of dry heaving around 1PM today. She denies continued episodes of vomiting, her last BM was this morning and consistent with her daily BMs. She states a cool wash cloth and 3x baby ASA last night helped to alleviate her Sx. She originally visited Dr. Hansen today but didn't want to wait on the results of a UA collected there and chose to visit the ED instead. She states that she is actually feeling significantly better since her arrival to the ED. She states that last time when she did have similar Sx associated with her cholelithiasis high dose Abx and acidophilus 2x day helped to alleviate her Sx. She has not had continued Sx from her cholelithiais and has not yet had cholecystecomy. Timing/Duration: 12-24 Hours Severity: Mild Modifying Factors: improves with Cold Therapy Associated Systoms: No Cough; Fever/Chills; No Headaches; Nausea/Vomiting; No Rash, No Shortness of Air (DOMINGUEZ DRAKE) Allergies and Home Medications Allergies Coded Allergies: No Known Drug Allergies (Unverified , 01/26/23) Patient Home Medication List Home Medication List Reviewed: Yes (DENISE NAYLOR MD) Ciprofloxacin HCl (Ciprofloxacin HCl) 500 Mg Tablet, 500 MG PO BID Prescribed by: JENS OLGUIN on 09/03/21 1228 Dicyclomine HCl (Dicyclomine HCl) 20 Mg Tablet, 20 MG PO QID PRN for DIARRHEA Prescribed by: DENISE MULLEN on 09/06/21 1222 Hydrocodone Bit/Acetaminophen (Lortab 5 Mg Tablet) 1 Tab Tab, 1 EACH PO Q4H PRN for PAIN-MODERATE Prescribed by: GUILLE AYALA on 06/04/192134 Metronidazole (Flagyl) 500 Mg Tablet, 500 MG PO TID Prescribed by: JENS OLGUIN on 09/03/21 1228 Ondansetron (Ondansetron Odt) 4 Mg Tab.rapdis, 4 MG PO Q4H PRN for NAUSEA/VOMITING Prescribed by: DENISE MULLEN on 09/06/21 1222 Ondansetron (Ondansetron Odt) 4 Mg Tab.rapdis, 4 MG SL Q4H PRN for NAUSEA/VOMITING Prescribed by: DENISE MULLEN on 01/26/23 1835 Review of Systems Review of Systems Constitutional: chills, fever EENTM: No hearing loss, No blurred vision Respiratory: No cough, No short of breath Cardiovascular: No chest pain, No palpitations Gastrointestinal: No abdominal pain, No constipation, No diarrhea, No hematemesis, No melena; nausea, vomiting Genitourinary: No dysuria, No frequency Musculoskeletal: No back pain, No joint pain; muscle pain Skin: No change in color, No change in hair/nails; hx of skin cancer Psychiatric/Neurological: Denies Headache, Denies Paresthesia Immunological/Allergic: pollen allergy (DOMINGUEZ DRAKE) Past Wkdtebl-Ljondu-Vceaip Hx Patient Social History Tobacco Use?: No Substance use?: No Alcohol Use?: No Pt feels they are or have been: No (DOMINGUEZ DRAKE) Immunizations Up To Date Influenza Vaccine Up-to-Date: Yes; Up-to-Date First/Initial COVID19 Vaccinat: NOV Second COVID19 Vaccination Ilya: Nov COVID19 Vaccination Date: 09/05/21 (DOMINGUEZ DRAKE) Past Medical History Surgery/Hospitalization HX: HYST, FACIAL SURG Surgeries: Yes Hysterectomy Respiratory: No Cardiac: No Neurological: No [employer]ING History: Hysterectomy, Menopausal Genitourinary: No Gastrointestinal: No Musculoskeletal: No Endocrine: No HEENT: No Cancer: No Psychosocial: No Integumentary: No Blood Disorders: No (DOMINGUEZ DRAKE) Physical Exam Vital Signs Vital Signs - First Documented 01/26/23 13:28 Temp 37.9 Pulse 91 Resp 16 B/P (MAP) 155/84 (107) Pulse Ox 98 (DENISE NAYLOR MD) Vital Signs Capillary Refill : Less Than 3 Seconds (DOMINGUEZ DRAKE) Height, Weight, BMI Height: 5'0" Weight: 123lbs. 0oz. [id number]; 25.00 BMI Method:Actual General Appearance: No Apparent Distress, WD/WN Eyes: Bilateral Eye PERRL, Bilateral Eye EOMI HEENT: PERRL/EOMI, Pharynx Normal Neck: Full Range of Motion, Non Tender, Supple Respiratory: Chest Non Tender, Lungs Clear, Normal Breath Sounds, No Accessory Muscle Use, No Respiratory Distress Cardiovascular: Regular Rate, Rhythm, No Edema, Normal Peripheral Pulses, Diastolic Murmur Gastrointestinal: Normal Bowel Sounds, No Organomegaly, No Pulsatile Mass, Non Tender, Soft Extremity: Normal Capillary Refill, Normal Range of Motion, Non Tender, No Calf Tenderness Neurologic/Psychiatric: Alert, Oriented x3, No Motor/Sensory Deficits, Normal Mood/Affect, 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 Norm as Tested Skin: Normal Color, Warm/Dry Lymphatic: No Adenopathy (DOMINGUEZ DRAKE) Progress/Results/Core Measures Suspected Sepsis SIRS Temperature: Pulse: 91 Respiratory Rate: 16 Laboratory Tests 01/26/23 14:39: White Blood Count 15.1H Blood Pressure 155 /84 Mean: 107 Laboratory Tests 01/26/23 14:39: Creatinine 0.88, Platelet Count 319, Total Bilirubin 0.3 (DOMINGUEZ DRAKE) Results/Orders Lab Results Laboratory Tests Test 01/26/23 14:12 01/26/23 14:20 01/26/23 14:39 01/26/23 15:30 Range/Units Influenza Type A (RT-PCR) Not Detected Not Detecte Influenza Type B (RT-PCR) Not Detected Not Detecte SARS-CoV-2 RNA (RT-PCR) Not Detected Not Detecte Magnesium Level 1.8 1.8 1.6-2.4 MG/DL C-Reactive Protein High Sensitivity 5.00 H 0.00-0.50 MG/DL White Blood Count 15.1 H 4.3-11.0 10^3/uL Red Blood Count 4.73 3.80-5.11 10^6/uL Hemoglobin 12.7 11.5-16.0 g/dL Hematocrit 38 35-52 % Mean Corpuscular Volume 81 80-99 fL Mean Corpuscular Hemoglobin 27 25-34 pg Mean Corpuscular Hemoglobin Concent 33 32-36 g/dL Red Cell Distribution Width 14.6 H 10.0-14.5 % Platelet Count 319 130-400 10^3/uL Mean Platelet Volume 9.3 9.0-12.2 fL Immature Granulocyte % (Auto) 0 % Neutrophils (%) (Auto) 88 H 42-75 % Lymphocytes (%) (Auto) 5 L 12-44 % Monocytes (%) (Auto) 6 0-12 % Eosinophils (%) (Auto) 0 0-10 % Basophils (%) (Auto) 1 0-10 % Neutrophils # (Auto) 13.3 H 1.8-7.8 10^3/uL Lymphocytes # (Auto) 0.8 L 1.0-4.0 10^3/uL Monocytes # (Auto) 1.0 0.0-1.0 10^3/uL Eosinophils # (Auto) 0.0 0.0-0.3 10^3/uL Basophils # (Auto) 0.1 0.0-0.1 10^3/uL Immature Granulocyte # (Auto) 0.1 0.0-0.1 10^3/uL Neutrophils % (Manual) 90 % Lymphocytes % (Manual) 5 % Monocytes % (Manual) 5 % Platelet Estimate ADEQUATE Blood Morphology Comment NORMAL Sodium Level 136 135-145 MMOL/L Potassium Level 3.6 3.6-5.0 MMOL/L Chloride Level 101 98-107 MMOL/L Carbon Dioxide Level 25 21-32 MMOL/L Anion Gap 10 5-14 MMOL/L Blood Urea Nitrogen 13 7-18 MG/DL Creatinine 0.88 0.60-1.30 MG/DL Estimat Glomerular Filtration Rate 66 BUN/Creatinine Ratio 15 Glucose Level 104 70-105 MG/DL Calcium Level 9.7 8.5-10.1 MG/DL Corrected Calcium 9.5 8.5-10.1 MG/DL Total Bilirubin 0.3 0.1-1.0 MG/DL Aspartate Amino Transf (AST/SGOT) 22 5-34 U/L Alanine Aminotransferase (ALT/SGPT) 16 0-55 U/L Alkaline Phosphatase 85 40-136 U/L Total Protein 8.0 6.4-8.2 GM/DL Albumin 4.3 3.2-4.5 GM/DL Urine Color YELLOW Urine Clarity CLEAR Urine pH 5.5 5-9 Urine Specific Rosamond 1.025 H 1.016-1.022 Urine Protein NEGATIVE NEGATIVE Urine Glucose (UA) NEGATIVE NEGATIVE Urine Ketones 1+ H NEGATIVE Urine Nitrite NEGATIVE NEGATIVE Urine Bilirubin NEGATIVE NEGATIVE Urine Urobilinogen 0.2 < = 1.0 MG/DL Urine Leukocyte Esterase NEGATIVE NEGATIVE Urine RBC (Auto) 1+ H NEGATIVE Urine RBC 5-10 H /HPF Urine WBC NONE /HPF Urine Squamous Epithelial Cells 0-2 /HPF Urine Crystals NONE /LPF Urine Bacteria NEGATIVE /HPF Urine Casts NONE /LPF Urine Mucus NEGATIVE /LPF Urine Culture Indicated NO (DENISE NAYLOR MD) My Orders Orders - DENISE NAYLOR MD Ed Iv/Invasive Line Start (01/26/23 13:57) Cbc With Automated Diff (01/26/23 13:57) Hs C Reactive Protein (01/26/23 13:57) Magnesium (01/26/23 13:57) Ua Culture If Indicated (01/26/23 13:57) Covid 19 Inhouse Test (01/26/23 13:57) Influenza A And B By Pcr (01/26/23 13:57) Manual Differential (01/26/23 14:39) Comprehensive Metabolic Panel (01/26/23 15:39) Magnesium (01/26/23 15:39) Ondansetron Injection (Zofran Injectio (01/26/23 16:00) Lactated Ringers (Lr 1000 Ml Iv Solution (01/26/23 16:15) Ct Abdomen/Pelvis Wo (01/26/23 16:24) (DENISE NAYLOR MD) Medications Given in ED (DENISE NAYLOR MD) Vital Signs/I&O 01/26/23 01/26/23 13:28 18:46 Temp 37.9 Pulse 91 Resp 16 B/P (MAP) 155/84 (107) 134/85 Pulse Ox 98 01/27/23 00:00 Intake Total 1000 ml Balance 1000 ml (DENISE NAYLOR MD) Vital Signs/I&O Capillary Refill : Less Than 3 Seconds (DOMINGUEZ DRAKE) Blood Pressure Mean: 107 Progress Note : Time: 16:21 Progress Note Given the Pt's leukocytosis and elevated CRP in the setting of nausea, fever, anorexia and known 3.5cm gallstone would like to r/o chronic cholecystitis via U/S. Discussed this with Pt who declined U/S due to "they push too hard", she is willing to undergo a CT but without contrast due to concern for contrast impacting her kidney fnx and understands that without contrast, the findings may be less definitive. (DOMINGUEZ DRAKE) Progress Note : Progress Note Patient was interviewed and examined by me personally along with MS 4. She was found to have mild upper abdominal tenderness. Labs were evaluated by me including CRP, CBC, CMP, magnesium and swabs for influenza and COVID. Viral swabs were negative. CRP and WBC were both notably elevated. The remainder of the labs were unremarkable. Patient was encouraged to pursue imaging to rule out infectious process due to the CRP and WBC elevation. She declined ultrasound because of discomfort associated with pressure from the probe. She declined contrast CT due to fears for nephropathy. She did consent to a noncontrast CT which was obtained. No gross abnormalities aside from the known gallstone were appreciated. There were no signs of acute cholecystitis on the CT. CT was viewed by me personally. The gallstone was appreciated. There is no pericholecystic fluid or wall thickening. There were no obvious inflammatory changes within the abdomen or pelvis. Report was also reviewed. Patient was treated with Zofran and a liter of IV fluids. She desired to return home. See discharge instructions for further discussion. (DENISE NAYLOR MD) Diagnostic Imaging Diagonstic Imaging: CT Plain Films/CT/US/NM/MRI: abdomen, pelvis Comments NAME: DELLA BEASLEY [facility] REC#: [id number] PT STATUS: DEP ER : 1940 PHYSICIAN: DENISE NAYLOR MD ADMIT DATE: 01/26/23/ER Signed Date of Exam:01/26/23 CT ABDOMEN/PELVIS WO EXAMINATION: CT abdomen and pelvis without contrast. TECHNIQUE: Multiple contiguous axial images were obtained through the abdomen and pelvis without the use of intravenous contrast. All CT scans use one or more of the following dose optimizing techniques: Automated exposure control, MA and/or KvP adjustment based on patient size and exam type or iterative reconstruction. HISTORY: Abdominal pain. COMPARISON: 09/03/2021. FINDINGS: Limited views of the lower thorax are unremarkable. The liver is normal without focal lesion. There is no biliary ductal dilation. There are stones in the gallbladder. Pancreas is normal. Spleen is normal. Adrenal glands are normal. There is a cyst in the left kidney. No suspicious renal lesion. No renal or ureteral stone. There is no hydronephrosis. Urinary bladder is normal. Bowel is normal in caliber without obstruction or inflammation. There is a small hiatal hernia. No free fluid or air. No abdominal or pelvic lymphadenopathy. Aorta is normal in caliber without aneurysm. There are no suspicious osseous lesions. IMPRESSION: 1. No acute abnormality in the abdomen or pelvis. Dictated by: Dictated on workstation # [id number] Dict: 01/26/23 171 Trans: 01/26/232224 [id number] Interpreted by: CHICO STRONG MD Electronically signed by: CHICO STRONG MD 01/26/232224 (DENISE NAYLOR MD) Departure Impression Primary Impression: Febrile illness, acute Additional Impressions: Nausea Cholelithiasis Qualified Codes: K80.20 - Calculus of gallbladder without cholecystitis without obstruction Leukocytosis Qualified Codes: D72.829 - Elevated white blood cell count, unspecified Disposition: 01 HOME, SELF-CARE Condition: Improved Departure-Patient Inst. Decision time for Depature: 18:35 (DENISE NAYLOR MD) Referrals: PRINCE HANSNE MD (PCP/Family) Primary Care Physician Patient Instructions: Fever, Adult (DC) Add. Discharge Instructions: Drink plenty of clear liquids to stay well-hydrated. Start with a clear liquid diet and gradually advance your diet with small quantities of bland food as tolerated. You may take Tylenol (acetaminophen) up to 1000 mg every 6 hours as needed for fever or pain. Use the Zofran (ondansetron) as prescribed for nausea or vomiting. Return to the emergency room if you have worsening symptoms despite following these instructions. Follow-up with your primary care provider next week. All discharge instructions reviewed with patient and/or family. Voiced understanding. Scripts Ondansetron (Ondansetron Odt) 4 Mg Tab.rapdis 4 MG SL Q4H PRN for NAUSEA/VOMITING, #10 TAB Prov: DENISE NAYLOR MD 01/26/23 Medical Student Attestation and Attending Note: I have personally interviewed and examined this patient along with Dominguez Drake, MS4. I have reviewed student documentation including history, physical, and assessments. I agree with the documentation except where otherwise noted. Exam: General: Alert, oriented, no acute distress, well developed HEENT: Normocephalic and atraumatic Heart: Regular rate and rhythm without murmur Lungs: Clear to auscultation bilaterally with normal effort Abdomen: Soft, minimal upper abdominal TTP, nondistended, normal bowel sounds Neuropsych: Alert, oriented, no focal deficits Skin: Warm and dry without rashes (DENISE NAYLOR MD) Copy Copies To 1: PRINCE HANSEN MD, DAVID Jan 26, 2023 15:44 DENISE NAYLOR MD Jan 26, 2023 18:39
[2023-01-26 16:00] LABS: BACTERIA,URINE NEGATIVE /HPF; SQUAMOUS EPITHELIAL CELL,UR 0-2 /HPF
[2023-01-26] MEDS ORDERED: ONDANSETRON 4 MG/2 ML (SDV) Z0FRAN IVP ONE (16:00)
[2023-01-26 16:01] LABS: ALBUMIN 4.3 GM/DL (3.2-4.5); POTASSIUM 3.6 MMOL/L (3.6-5.0)
[2023-01-26 16:02] LABS: CALCIUM 9.7 MG/DL (8.5-10.1)
[2023-01-26 16:05] LABS: BILIRUBIN,TOTAL 0.3 MG/DL (0.1-1.0)
[2023-01-26 16:07] LABS: CREATININE SERUM 0.88 MG/DL (0.60-1.30)
[2023-01-26 16:10] LABS: MAGNESIUM 1.8 MG/DL (1.6-2.4)
[2023-01-26] MEDS ORDERED: LACTATED RINGERS 1,000 ML IV ONE (16:15)
--- NOTE | 2023-01-26 17:17 | Diagnostic Imaging Report ---
EXAMINATION: CT abdomen and pelvis without contrast. TECHNIQUE: Multiple contiguous axial images were obtained through the abdomen and pelvis without the use of intravenous contrast. All CT scans use one or more of the following dose optimizing techniques: Automated exposure control, MA and/or KvP adjustment based on patient size and exam type or iterative reconstruction. HISTORY: Abdominal pain. COMPARISON: 09/03/2021. FINDINGS: Limited views of the lower thorax are unremarkable. The liver is normal without focal lesion. There is no biliary ductal dilation. There are stones in the gallbladder. Pancreas is normal. Spleen is normal. Adrenal glands are normal. There is a cyst in the left kidney. No suspicious renal lesion. No renal or ureteral stone. There is no hydronephrosis. Urinary bladder is normal. Bowel is normal in caliber without obstruction or inflammation. There is a small hiatal hernia. No free fluid or air. No abdominal or pelvic lymphadenopathy. Aorta is normal in caliber without aneurysm. There are no suspicious osseous lesions. IMPRESSION: 1. No acute abnormality in the abdomen or pelvis. Dictated by: Dictated on workstation # [id number]
[2023-01-26] MEDS ORDERED: ONDA4TAB11 SL (18:35)
[2023-01-26 18:46] VITALS: BP 134/85
== END 2023-01-26 18:48 | disposition home or self-care (01) ==
LOC: EDUNIT# 13:09 → ER 13:11
DX: K80.20 Calculus of gallbladder without cholecystitis without obstruction (principal); D72.829 Elevated white blood cell count, unspecified; R79.82 Elevated C-reactive protein (CRP); Z20.822 Contact with and (suspected) exposure to COVID-19
CPT/HCPCS: 36415; 74176; 80053; 81000; 83735; 85007; 85027; 86141; 87636

== ENCOUNTER 2023-08-06 09:47 | Inpatient (IN) | payer MEDICARE, OTHER ==
[~2023-08-06] VITALS: Ht 149.9 cm; Wt 55.0 kg
[~2023-08-06 09:47] MED LIST changes: +ONDA4TAB11 SL
[2023-08-06] MEDS ORDERED: LACTATED RINGERS 1,000 ML 1,000 ML IV ONE (10:00)
[2023-08-06] MEDS ORDERED: ONDANSETRON INJECTION 4 MG/2 ML (SDV) IVP ONE (10:00)
--- NOTE | 2023-08-06 10:03 | ED GI ---
General Chief Complaint: Abdominal/GI Problems Stated Complaint: CLAMMY | NAUSEA | VOMITING Source of Information: Patient History of Present Illness Date Seen by Provider: Aug 06, 2023 Time Seen by Provider: 09:53 Initial Comments PT ARRIVES VIA POV FROM HOME, WALKS IN ON HER OWN WITHOUT DIFFICULTY STATES SHE HAD DIARRHEA X 4-5 TIMES YESTERDAY THIS MORNING SHE HAD NAUSEA AND VOMITED X 1 --SMALL AMOUNT. NO NAUSEA NOW NO ABDOMINAL PAIN STATES SHE FELT CLAMMY AND LIGHTHEADED AND FELT FAINT. HAD HER SON-IN-LAW ( HOME HEALTH NURSE) COME AND CHECK HER VITALS AND SHE STATES THEY WERE ALL NORMAL. NO FEVER SHE DENIES ANY URINARY SYMPTOMS AND VOIDED PRIOR TO ARRIVAL NO CHEST PAIN NO SHORTNESS OF BREATH. SHE IS NOT HAVING ANY SYMPTOMS NOW AND STATES SHE FEELS FINE. SHE DOES HAVE A [facility] PCP: DR. BERG Allergies and Home Medications Allergies Coded Allergies: No Known Drug Allergies (Unverified , 01/26/23) Patient Home Medication List Ciprofloxacin HCl (Ciprofloxacin HCl) 500 Mg Tablet, 500 MG PO BID Prescribed by: JENS OLGUIN on 09/03/21 1228 Dicyclomine HCl (Dicyclomine HCl) 20 Mg Tablet, 20 MG PO QID PRN for DIARRHEA Prescribed by: DENISE MULLEN on 09/06/21 1222 Hydrocodone Bit/Acetaminophen (Lortab 5 Mg Tablet) 1 Tab Tab, 1 EACH PO Q4H PRN for PAIN-MODERATE Prescribed by: GUILLE AYALA on 06/04/19 2135 Metronidazole (Flagyl) 500 Mg Tablet, 500 MG PO TID Prescribed by: JENS OLGUIN on 09/03/21 1228 Ondansetron (Ondansetron Odt) 4 Mg Tab.rapdis, 4 MG PO Q4H PRN for NAUSEA/VOMITING Prescribed by: DENISE MULLEN on 09/06/21 1222 Ondansetron (Ondansetron Odt) 4 Mg Tab.rapdis, 4 MG SL Q4H PRN for NAUSEA/VOMITING Prescribed by: DENISE MULLEN on 01/26/23 1835 Review of Systems Review of Systems Constitutional: see HPI, diaphoresis, dizziness EENTM: No Symptoms Reported Respiratory: No Symptoms Reported Cardiovascular: No Symptoms Reported Gastrointestinal: See HPI; Denies Abdominal Pain; Diarrhea, Nausea, Vomiting Genitourinary: No Symptoms Reported Musculoskeletal: no symptoms reported Skin: no symptoms reported Psychiatric/Neurological: No Symptoms Reported Endocrine: No Symptoms Reported Hematologic/Lymphatic: No Symptoms Reported Past Pofzjrq-Eaukrm-[id number] Hx Patient Social History Tobacco Use?: No Use of E-Cig and/or Vaping dev: No Substance use?: No Alcohol Use?: No Pt feels they are or have been: No Immunizations Up To Date First/Initial COVID19 Vaccinat: Nov COVID19 Vaccination Ilya: Nov COVID19 Vaccination Date: 09/05/21 Past Medical History Surgery/Hospitalization HX: HYSTERECTOMY SKIN CANCER Surgeries: Yes Hysterectomy Respiratory: No Cardiac: No Neurological: 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 0oz. 55.576682wn; 25.00 BMI Method:Actual General Appearance: WD/WN, no apparent distress, other (WALKS AND MOVES QUICKLY WITHOUT DIFFICULTY. DOES NOT APPEAR ILL OR TO BE IN ANY DISCOMFORT OR DISTRESS. ) HEENT: PERRL/EOMI; No scleral icterus (R), No scleral icterus (L) Neck: normal inspection Respiratory: normal breath sounds, no respiratory distress, no accessory muscle use Cardiovascular: regular rate, rhythm, no murmur Gastrointestinal: normal bowel sounds, non tender, soft Extremities: normal inspection, normal capillary refill Back: normal inspection, no CVA tenderness Neurologic/Psychiatric: urgent care II-XII nml as tested, no motor/sensory deficits, alert, normal mood/affect, oriented x 3 Skin: normal color, warm/dry Progress/Results/Core Measures Results/Orders Lab Results Laboratory Tests Test 08/06/23 09:59 08/06/23 10:08 08/06/23 11:16 Range/Units White Blood Count 12.8 H 4.3-11.0 10^3/uL Red Blood Count 5.35 H 3.80-5.11 10^6/uL Hemoglobin 14.1 11.5-16.0 g/dL Hematocrit 45 35-52 % Mean Corpuscular Volume 83 80-99 fL Mean Corpuscular Hemoglobin 26 25-34 pg Mean Corpuscular Hemoglobin Concent 32 32-36 g/dL Red Cell Distribution Width 16.5 H 10.0-14.5 % Platelet Count 437 H 130-400 10^3/uL Mean Platelet Volume 9.7 9.0-12.2 fL Immature Granulocyte % (Auto) 0 % Neutrophils (%) (Auto) 74 42-75 % Lymphocytes (%) (Auto) 15 12-44 % Monocytes (%) (Auto) 4 0-12 % Eosinophils (%) (Auto) 6 0-10 % Basophils (%) (Auto) 0 0-10 % Neutrophils # (Auto) 9.5 H 1.8-7.8 10^3/uL Lymphocytes # (Auto) 1.9 1.0-4.0 10^3/uL Monocytes # (Auto) 0.5 0.0-1.0 10^3/uL Eosinophils # (Auto) 0.8 H 0.0-0.3 10^3/uL Basophils # (Auto) 0.0 0.0-0.1 10^3/uL Immature Granulocyte # (Auto) 0.0 0.0-0.1 10^3/uL Erythrocyte Sedimentation Rate 8 0-30 MM/HR Prothrombin Time 12.6 12.2-14.7 SEC INR Comment 0.9 0.8-1.4 Activated Partial Thromboplast Time 39 H 24-35 SEC D-Dimer 4.65 H 0.00-0.49 UG/ML Sodium Level 139 135-145 MMOL/L Potassium Level 3.7 3.6-5.0 MMOL/L Chloride Level 103 98-107 MMOL/L Carbon Dioxide Level 24 21-32 MMOL/L Anion Gap 12 5-14 MMOL/L Blood Urea Nitrogen 17 7-18 MG/DL Creatinine 0.86 0.60-1.30 MG/DL Estimat Glomerular Filtration Rate 68 BUN/Creatinine Ratio 20 Glucose Level 122 H 70-105 MG/DL Calcium Level 9.8 8.5-10.1 MG/DL Corrected Calcium 9.5 8.5-10.1 MG/DL Magnesium Level 1.8 1.6-2.4 MG/DL Total Bilirubin 0.5 0.1-1.0 MG/DL Aspartate Amino Transf (AST/SGOT) 25 5-34 U/L Alanine Aminotransferase (ALT/SGPT) 18 0-55 U/L Alkaline Phosphatase 94 40-136 U/L Total Creatine Kinase 64 29-168 U/L Creatine Kinase MB 3.7 <6.6 NG/ML Troponin I < 0.028 <0.028 NG/ML C-Reactive Protein High Sensitivity 0.47 0.00-0.50 MG/DL B-Type Natriuretic Peptide 25.2 <100.0 PG/ML Total Protein 8.5 H 6.4-8.2 GM/DL Albumin 4.4 3.2-4.5 GM/DL Amylase Level 904 H 25-125 U/L Lipase 3347 H 8-78 U/L Influenza Type A (RT-PCR) Not Detected Not Detecte Influenza Type B (RT-PCR) Not Detected Not Detecte SARS-CoV-2 RNA (RT-PCR) Not Detected Not Detecte Urine Color YELLOW Urine Clarity CLEAR Urine pH 5.5 5-9 Urine Specific [place] 1.020 1.016-1.022 Urine Protein NEGATIVE NEGATIVE Urine Glucose (UA) NEGATIVE NEGATIVE Urine Ketones NEGATIVE NEGATIVE Urine Nitrite NEGATIVE NEGATIVE Urine Bilirubin NEGATIVE NEGATIVE Urine Urobilinogen 0.2 < = 1.0 MG/DL Urine Leukocyte Esterase NEGATIVE NEGATIVE Urine RBC (Auto) NEGATIVE NEGATIVE Urine RBC NONE /HPF Urine WBC NONE /HPF Urine Crystals NONE /LPF Urine Bacteria NEGATIVE /HPF Urine Casts NONE /LPF Urine Mucus NEGATIVE /LPF Urine Culture Indicated NO My Orders Orders - GUILLE AYALA DO Ed Iv/Invasive Line Start (08/06/23 09:53) Ekg Tracing (08/06/23 09:53) Monitor-Rhythm Ecg Trace Only (08/06/23 09:53) Amylase (08/06/23 09:53) Bnp Matteo (08/06/23 09:53) Cbc With Automated Diff (08/06/23 09:53) Comprehensive Metabolic Panel (08/06/23 09:53) Creatine Kinase (08/06/23 09:53) Creatine Kinase Mb (08/06/23 09:53) Hs C Reactive Protein (08/06/23 09:53) Fibrin Degradation Products (08/06/23 09:53) Lipase (08/06/23 09:53) Magnesium (08/06/23 09:53) Protime With Inr (08/06/23 09:53) Partial Thromboplastin Time (08/06/23 09:53) Ua Culture If Indicated (08/06/23 09:53) Erythrocyte Sedimentation Rate (08/06/23 09:53) Troponin I Matteo (08/06/23 09:53) Ed Iv/Invasive Line Start (08/06/23 09:53) Lactated Ringers 1,000 Ml (Lactated Ring (08/06/23 10:00) Ondansetron Injection (Ondansetron Inj (08/06/23 10:00) Covid 19 Inhouse Test (08/06/23 09:53) Influenza A And B By Pcr (08/06/23 09:53) Ct Chest/Abdomen/Pelvis Wo (08/06/23 10:44) Us Abdomen Complete 54026 (08/06/23 11:48) Us Venous Lower Ext [place] (08/06/23 11:48) Ed Admission (Communication) (08/06/23 11:49) Medications Given in ED Current Medications Medications Dose Ordered Sig/Jem Route Start Time Stop Time Status Last Admin Dose Admin Lactated Ringer's 1,000 ml @ 0 mls/hr Q0M ONCE IV 08/06/23 10:00 08/06/23 10:01 DC 08/06/23 10:49 999 MLS/HR Ondansetron HCl 4 mg ONCE ONCE IVP 08/06/23 10:00 08/06/23 10:01 DC 08/06/23 10:05 4 MG Vital Signs/I&O 08/06/23 08/06/23 09:56 09:56 Temp 37.0 37.0 Pulse 85 85 Resp 18 18 B/P (MAP) 142/88 (106) 147/86 (106) Pulse Ox 99 99 O2 Delivery Room Air Progress Progress Note : Progress Note VITALS ON ARRIVAL: TEMP 37.0, HR 85, RR 18, BP 142/88, O2 SAT 99% ON ROOM AIR GIVEN: -IV FLUIDS LABS: -CBC WITH WBC 12.8, HGB 14.1, PLT 437,000 -CMP NORMAL -AMYLASE 904 / LIPASE 3347 -MG 1.8 -TROPONIN NEGATIVE -BNP NORMAL -PT/PTT/INR NORMAL -D-DIMER 4.65 -CRP NORMAL -UA CLEAR -COVID/FLU TESTS NEGATIVE PT REPEATEDLY AND VERY ADAMANTLY REFUSES IV CONTRAST, STATES SHE IS NOT ALL ERGIC--SHE JUST DOES NOT WANT IT. EXPLAINED TO PT THE IMPORTANCE OF THE TEST WITH CONTRAST, AND EXPLAINED THAT HER KIDNEY FUNCTION WAS NORMAL AND SHE HAD NO CONTRA-INDICATIONS TO THE CONTRAST, AND SHE CONTINUES TO ADAMANTLY REFUSE IT. CT CHEST / ABDOMEN / PELVIS SHOWS NO ACUTE FINDINGS EKG IS UNREMARKABLE NO DETERIORATION IN PT'S CONDITION DURING ER STAY SHE REMAINED SYMPTOM-FREE DURING ER STAY VITALS STABLE, AFEBRILE DISCUSSED TEST RESULTS, NEED FOR ADMIT AND PT IS AGREEABLE TO PLAN REVIEWED PRIOR RECORDS --ALL ER VISITS, INCLUDING TESTS/PROCEDURES Initial ECG Impression Date: Aug 06, 2023 Initial ECG Impression Time: 10:14 Initial ECG Rate: 79 Initial ECG Rhythm: Normal Sinus Initial ECG Intervals DE 185 QRS 92 QT/QTC 376/411 Initial ECG Impression: Normal Initial ECG Comparisson: No Previous ECG Available Comment INTERPRETED BY ME Diagnostic Imaging Comments CXR-- CT CHEST/ABDOMEN/PELVIS--PER RADIOLOGIST REPORT AT 1143 INDICATION: Thoracoabdominal pain, elevated pancreatic enzymes and abnormal D-dimer. Compared with abdominal pelvic nonenhanced CT 01/26/2023. No prior dedicated chest. CHEST: There is a 6 mm average diameter subpleural nodule in the right upper lobe anteromedially. A 7 mm diameter nodule in the right upper lobe more inferiorly present. Both of these above the field of view of the knee comparison study sub-solid subpleural nodule in the left lower lobe with an average diameter 3 mm stable and felt incidental. No spiculated lesion. No pneumonia, effusion or pneumothorax. No pathologically enlarged thoracic lymph nodes. No effusion. No chest effusion. No bony destructive process or fracture. Heart size is within normal limits. The thoracic aorta nonaneurysmal. Abdomen pelvis: There are gallstones present without biliary dilatation or features of acute cholecystitis the pancreas appeared unremarkable at this infused exam. No acute fluid collection or peripancreatic edema. There is a small hiatal hernia. Spleen and adrenals negative. The kidneys unobstructed. No ascites, abscess, hematoma or acute fluid collection. There is no abdominal pelvic adenopathy. There is noninflamed sigmoid diverticulosis. The bony structures were nonacute. No pneumatosis. No free gas. The urinary bladder unremarkable. Uterus absent . There is no adnexal lesion. There is no appendicitis or diverticulitis. No acute abdominal wall pathology. The aorta is nonaneurysmal. IMPRESSION: Chest: Subcentimeter right upper lobe pulmonary nodules indeterminate but given the absence of priors follow-up chest CT in 6 months time recommended. No acute-appearing thoracic abnormality. Abdomen pelvis: Gallstones without features of acute cholecystitis or CT features is associated with pancreatitis. No ileus, outlet obstruction or bowel obstruction. No perforation or fluid collection. No findings of hemorrhage. Small hiatal hernia. Unobstructed urinary tracts. No adnexal lesion. Mild noninflamed sigmoid diverticulosis. Reviewed: Reviewed by Tn Departure Communication (Admissions) [id number]--SPOKE WITH DR. GODOY, HOSPITALIST. ACCEPTS PT FOR ADMIT. SHE WILL DO ADMIT ORDERS. Impression Primary Impression: Pancreatitis Additional Impressions: Elevated d-dimer Cholelithiasis Disposition: ADMITTED INPATIENT Condition: Stable Admissions Decision to Admit Reason: Admit from ER (General) Decision to Admit/Date: Aug 06, 2023 Time/Decision to Admit Time: 11:50 Departure-Patient Inst. Referrals: PRINCE BERG MD (PCP/Family) Primary Care Physician GUILLE AYALA DO Aug 06, 2023 10:03
[2023-08-06 10:05] LABS: BASOPHILS % (AUTO) 0 % (0-10); EOSINOPHILS # (AUTO) 0.8 10^3/uL (0.0-0.3); EOSINOPHILS % (AUTO) 6 % (0-10); HEMATOCRIT 45 % (35-52); HEMOGLOBIN 14.1 g/dL (11.5-16.0); LYMPHOCYTES # (AUTO) 1.9 10^3/uL (1.0-4.0); LYMPHOCYTES % (AUTO) 15 % (12-44); MEAN CORPUSCULAR HEMOGLOBIN 26 pg (25-34); MEAN CORPUSCULAR HGB CONC 32 g/dL (32-36); MEAN CORPUSCULAR VOLUME 83 fL (80-99); MEAN PLATELET VOLUME 9.7 fL (9.0-12.2); MONOCYTES # (AUTO) 0.5 10^3/uL (0.0-1.0); MONOCYTES % (AUTO) 4 % (0-12); NEUTROPHILS # (AUTO) 9.5 10^3/uL (1.8-7.8); NEUTROPHILS % (AUTO) 74 % (42-75); PLATELET COUNT 437 10^3/uL (130-400); WHITE BLOOD COUNT 12.8 10^3/uL (4.3-11.0)
[2023-08-06 10:16] LABS: INR 0.9 (0.8-1.4); PROTHROMBIN TIME PATIENT 12.6 SEC (12.2-14.7)
[2023-08-06 10:17] LABS: ALBUMIN 4.4 GM/DL (3.2-4.5); CHLORIDE 103 MMOL/L (98-107); POTASSIUM 3.7 MMOL/L (3.6-5.0); SODIUM 139 MMOL/L (135-145)
[2023-08-06 10:18] LABS: AMYLASE 904 U/L (25-125); CALCIUM 9.8 MG/DL (8.5-10.1)
[2023-08-06 10:19] LABS: GLUCOSE 122 MG/DL (70-105); TOTAL PROTEIN 8.5 GM/DL (6.4-8.2)
[2023-08-06 10:20] LABS: CARBON DIOXIDE 24 MMOL/L (21-32)
[2023-08-06 10:21] LABS: BILIRUBIN,TOTAL 0.5 MG/DL (0.1-1.0)
[2023-08-06 10:23] LABS: ALKALINE PHOSPHATASE 94 U/L (40-136); CREATININE SERUM 0.86 MG/DL (0.60-1.30); GFR ESTIMATED 68
[2023-08-06 10:24] LABS: BUN/CREATININE RATIO 20; ERYTHROCYTE SEDIMENTATION RATE 8 MM/HR (0-30)
[2023-08-06 10:26] LABS: ALANINE AMINOTRANSFERASE 18 U/L (0-55); MAGNESIUM 1.8 MG/DL (1.6-2.4)
[2023-08-06 10:27] LABS: CREATINE KINASE 64 U/L (29-168)
[2023-08-06 10:30] LABS: FIBRIN DEGRADATION PRODUCTS 4.65 UG/ML (0.00-0.49)
[2023-08-06 10:32] LABS: CREATINE KINASE MB 3.7 NG/ML (<6.6)
[2023-08-06 11:18] LABS: LIPASE 3347 U/L (8-78)
--- NOTE | 2023-08-06 11:29 | Diagnostic Imaging Report ---
PROCEDURE: CT chest, abdomen, and pelvis without contrast. TECHNIQUE: Multiple contiguous axial images were obtained through the chest, abdomen, and pelvis without the use of intravenous contrast. Auto Exposure Controls were utilized during the CT exam to meet ALARA standards for radiation dose reduction. INDICATION: Thoracoabdominal pain, elevated pancreatic enzymes and abnormal D-dimer. Compared with abdominal pelvic nonenhanced CT 01/26/2023. No prior dedicated chest. CHEST: There is a 6 mm average diameter subpleural nodule in the right upper lobe anteromedially. A 7 mm diameter nodule in the right upper lobe more inferiorly present. Both of these above the field of view of any comparison study sub-solid subpleural nodule in the left lower lobe with an average diameter 3 mm stable and felt incidental. No spiculated lesion. No pneumonia, effusion or pneumothorax. No pathologically enlarged thoracic lymph nodes. No effusion. No chest effusion. No bony destructive process or fracture. Heart size is within normal limits. The thoracic aorta nonaneurysmal. Abdomen pelvis: There are gallstones present without biliary dilatation or features of acute cholecystitis the pancreas appeared unremarkable at this infused exam. No acute fluid collection or peripancreatic edema. There is a small hiatal hernia. Spleen and adrenals negative. The kidneys unobstructed. No ascites, abscess, hematoma or acute fluid collection. There is no abdominal pelvic adenopathy. There is noninflamed sigmoid diverticulosis. The bony structures were nonacute. No pneumatosis. No free gas. The urinary bladder unremarkable. Uterus absent . There is no adnexal lesion. There is no appendicitis or diverticulitis. No acute abdominal wall pathology. The aorta is nonaneurysmal. IMPRESSION: Chest: Subcentimeter right upper lobe pulmonary nodules indeterminate but given the absence of priors follow-up chest CT in 6 months time recommended. No acute-appearing thoracic abnormality. Abdomen pelvis: Gallstones without features of acute cholecystitis or CT features is associated with pancreatitis. No ileus, outlet obstruction or bowel obstruction. No perforation or fluid collection. No findings of hemorrhage. Small hiatal hernia. Unobstructed urinary tracts. No adnexal lesion. Mild noninflamed sigmoid diverticulosis. Dictated by: Dictated on workstation # [id number]
[2023-08-06 11:33] LABS: CLARITY,URINE CLEAR; COLOR,URINE YELLOW; GLUCOSE, URINE (UA) NEGATIVE (NEGATIVE); PH,URINE 5.5 (5-9); PROTEIN,URINE NEGATIVE (NEGATIVE)
[2023-08-06 11:34] LABS: BACTERIA,URINE NEGATIVE /HPF; BILIRUBIN,URINE NEGATIVE (NEGATIVE); KETONES,URINE NEGATIVE (NEGATIVE); LEUKOCYTE ESTERASE ,URINE NEGATIVE (NEGATIVE); NITRITE,URINE NEGATIVE (NEGATIVE)
[2023-08-06] MEDS ORDERED: oxyCODONE IMMEDIATE RELEASE 5 MG TABLET PO PRN (12:45)
[2023-08-06] MEDS ORDERED: LACTULOSE SYRUP 10GM/15ML 30ML UDC PO PRN (12:45)
[2023-08-06] MEDS ORDERED: HYDROmorphone INJECTION 2 MG/ML VIAL IV PRN (12:45)
[2023-08-06] MEDS ORDERED: ONDANSETRON 4 MG ORAL DISSOLVE TABLET PO PRN (12:45)
[2023-08-06] MEDS ORDERED: MILK OF MAGNESIA 400 MG/5 ML 30 ML UDC PO PRN (12:45)
[2023-08-06] MEDS ORDERED: MELATONIN 3 MG TABLET PO PRN (12:45)
[2023-08-06] MEDS ORDERED: BISACODYL 10 MG SUPPOSITORY PR PRN (12:45)
[2023-08-06] MEDS ORDERED: diphenhydrAMINE INJ 50 MG/ML VIAL IVP PRN (12:45)
[2023-08-06] MEDS ORDERED: ENOXAPARIN 100 MG/1 ML SYRINGE SC SCH (12:45)
[2023-08-06] MEDS ORDERED: diphenhydrAMINE 25 MG TABLET PO PRN (12:45)
[2023-08-06] MEDS ORDERED: ONDANSETRON INJECTION 4 MG/2 ML (SDV) IV PRN (12:45)
[2023-08-06] MEDS ORDERED: CALCIUM CARBONATE 500 MG CHEW TABLET PO PRN (12:45)
[2023-08-06] MEDS ORDERED: ANTACID SUSPENSION 30 ML UDC PO PRN (12:45)
[2023-08-06 12:50] VITALS: BP_SYST 137; BP_SYST 142; BP_DIAS 69; BP_DIAS 88
[2023-08-06] MEDS: NS IV 1000 ML 1,000 ML IV SCH ×2 (13:15→20:52)
[2023-08-06] MEDS: ENOXAPARIN 60 MG/0.6 ML SYRINGE SC SCH (13:16)
--- NOTE | 2023-08-06 14:16 | History & Physical ---
SATYA ORNELAS 08/06/23 1416: History of Present Illness History of Present Illness Reason for visit/HPI 08/06/2023: CC: Pancreatitis HPI: Allison is an 82 year old female that presented to the hospital due to abdominal pain that started in the morning. Allison says that the pain is present on the sides of her abdomen, she describes the pain as "hunger pains". She denies any epigastric pain. She notes that she has also been clammy, slightly lightheaded, and nauseous. Allison says that this morning she had a small amount of bilious emesis ("1 tablespoon"). Allison says that the symptoms started when she woke up, and notes that she had a similar experience 2 years ago. She noted that [address] Torres notified her of a gallstone that could have been causing the issues, but if it doesn't continue to be an issue it wouldn't be removed. Patient is now adamant that the gallstone is the cause of her issues and wonders about removal. She noted that this morning she had loose stool and yesterday she had multiple episodes of diarrhea. She also says that she has had increased flatulence. Allison says that she has good fluid intake and that she drinks water. Allison says that she ate some cereal this morning, but nothing else. She wanted to avoid any foods that could cause pains. Allison has no other concerns. Date of Admission Aug 06, 2023 at 12:25 Date Seen by a Provider: Aug 06, 2023 Time Seen by a Provider: 14:16 I consulted on this patient on 08/06/23 14:08 Attending Physician Ana Hansen MD Admitting Physician Admitting Physician: Na Godoy DO Attending Physician: Na Godoy DO Consult Allergies and Home Medications Allergies Coded Allergies: Sulfa (Sulfonamide Antibiotics) (Verified Allergy, Mild, rash, 08/06/23) amoxicillin (Verified Allergy, Mild, rash, 08/06/23) Patient Home Medication List Home Medication List Reviewed: Yes Ciprofloxacin HCl (Ciprofloxacin HCl) 500 Mg Tablet, 500 MG PO BID Prescribed by: JENS OLGUIN on 09/03/21 1228 Dicyclomine HCl (Dicyclomine HCl) 20 Mg Tablet, 20 MG PO QID PRN for DIARRHEA Prescribed by: DENISE MULLEN on 09/06/21 1222 Hydrocodone Bit/Acetaminophen (Lortab 5 Mg Tablet) 1 Tab Tab, 1 EACH PO Q4H PRN for PAIN-MODERATE Prescribed by: GUILLE AYALA on 06/04/19 2135 Metronidazole (Flagyl) 500 Mg Tablet, 500 MG PO TID Prescribed by: JENS OLGUIN on 09/03/21 1228 Ondansetron (Ondansetron Odt) 4 Mg Tab.rapdis, 4 MG PO Q4H PRN for NAUSEA/VOMITING Prescribed by: DENISE MULLEN on 09/06/21 1222 Ondansetron (Ondansetron Odt) 4 Mg Tab.rapdis, 4 MG SL Q4H PRN for NAUSEA/VOMITING Prescribed by: DENISE MULLEN on 01/26/23 1835 Past Aihlwop-Fxotou-Fjkzpa Hx Patient Social History Employed/Student: retired Tobacco Use?: No Smoking Status: Never a Smoker Smokeless Tobacco Frequency: Never a User Use of E-Cig and/or Vaping dev: No Substance use?: No Alcohol Use?: Yes Alcohol type: Wine Alcohol Frequency: Once in a while (2-3 drinks/month) Pt feels they are or have been: No Immunizations Up To Date First/Initial COVID19 Vaccinat: NOV Second COVID19 Vaccination Ilya: NOV Tetanus Booster (TDap): More Than 5 Years Hepatitis A: No Hepatitis B: No Current Status status: No status: No Advance Directives: Yes Advance Directive Location: Family to bring in copy Communicates: Verbally Primary Language: American Preferred Spoken Language: American Is interpretation needed?: No Implanted or Applied Medical D: None Past Medical History Surgeries: Hysterectomy Currently Using CPAP: No Currently Using BIPAP: 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 She doesn't remember many specifics. 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 She says that after this she was treated with radiation to prevent recurrence, which is where her basal cell carcinoma occurs. Blood Disorders: No Family Medical History Heart Disease (Father ), Other Conditions/Hx (OA, mother) Review of Systems Constitutional: No no symptoms reported, No see HPI, No chills, No diaphoresis; dizziness; No fever, No malaise, No weakness, No weight gain, No weight loss, No other EENTM: no symptoms reported Respiratory: No no symptoms reported, No see HPI, No cough, No dyspnea on exertion, No hemoptysis, No orthopnea, No phlegm, No short of breath, No stridor, No wheezing, No other Cardiovascular: No no symptoms reported, No see HPI, No chest pain, No edema, No Hx of Intervention, No palpitations, No syncope, No vascular heart diseas, No other Gastrointestinal: RLQ, LLQ, abdominal pain, diarrhea, loss of appetite, nausea, vomiting Genitourinary: no symptoms reported : No Musculoskeletal: no symptoms reported Skin: no symptoms reported, hx of skin cancer Psychiatric/Neurological: No Symptoms Reported, Headache Physical Exam Vital Signs Vital Signs - First Documented 08/06/23 09:56 Temp 37.0 Pulse 85 Resp 18 B/P (MAP) 142/88 (106) Pulse Ox 99 O2 Delivery Room Air Capillary Refill : Less Than 3 Seconds Height, Weight, BMI Height: 5'0" Weight: 123lbs. 0oz. [id number]; 24.47 BMI Method:Actual General Appearance: No Apparent Distress, WD/WN Eyes: Bilateral Eye Normal Inspection HEENT: PERRL/EOMI, Moist Mucous Membranes; No Pale Conjunctivae (L), No Pale Conjunctivae (R), No Scleral Icterus (L), No Scleral Icterus (R) Neck: Full Range of Motion, Normal Inspection, Non Tender, Supple Respiratory: Chest Non Tender, Lungs Clear, Normal Breath Sounds, No Accessory Muscle Use, No Respiratory Distress Cardiovascular: Regular Rate, Rhythm, No Edema, No Gallop, No JVD, No Murmur, Normal Peripheral Pulses Gastrointestinal: Normal Bowel Sounds, No Organomegaly, No Pulsatile Mass, Soft, Guarding; No Mass, No Rebound, No Splenomegaly; Tenderness Rectal: Deferred Back: Normal Inspection Extremity: Normal Capillary Refill, Normal Inspection, Normal Range of Motion, Non Tender, No Calf Tenderness, No Pedal Edema Neurologic/Psychiatric: Alert, Oriented x3, No Motor/Sensory Deficits, Normal 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, 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 Norm as Tested Skin: Normal Color, Warm/Dry; No Jaundice, No Rash Lymphatic: No Adenopathy Assessment/Plan Assessment and Plan 08/06/2023: Assessment: * Acute Pancreatitis * Cholelithiasis * Nausea/ Vomitting * Diarrhea * hx of cancer Plan: * IV Fluids * Clear fluids diet * US of gallbladder * Lipid Panel * Surgery consult * HIDA Scan * Zofran Problems: (1) Pancreatitis Status: Acute Qualifiers: Qualified Codes: K85.10 - Biliary acute pancreatitis without necrosis or infection Assessment & Plan: IV Fluids, Clear Fluids (2) Cholelithiasis Status: Chronic Qualifiers: Qualified Codes: K80.20 - Calculus of gallbladder without cholecystitis without obstruction Assessment & Plan: Surgery Consult (3) Nausea vomiting and diarrhea Status: Acute Assessment & Plan: Supportive Tx Admission Diagnosis Pancreatitis Admission Status: Inpatient Order (span 2 midnights) Reason for Inpatient Admission: Fluids, potential surgery NA GODOY DO 08/06/231956: History of Present Illness History of Present Illness Reason for visit/HPI Chief complaint: Acute pancreatitis HPI: This is an 82-year-old female clinic patient of Dr. Hansen who presented with abdominal pain and nausea and vomiting diagnosed with acute on chronic pancreatitis. Apparently she had gallbladder disease diagnosed 2 years ago received a consultation from Dr. Torres in [place] and she chose not to have a cholecystectomy. currently she is doing much better but will consult Dr. Goodson after obtaining ultrasound. Allergies and Home Medications Allergies Coded Allergies: Sulfa (Sulfonamide Antibiotics) (Verified Allergy, Mild, rash, 08/06/23) amoxicillin (Verified Allergy, Mild, rash, 08/06/23) Patient Home Medication List Home Medication List Reviewed: Yes Ciprofloxacin HCl (Ciprofloxacin HCl) 500 Mg Tablet, 500 MG PO BID Prescribed by: JENS OLGUIN on 09/03/21 1228 Dicyclomine HCl (Dicyclomine HCl) 20 Mg Tablet, 20 MG PO QID PRN for DIARRHEA Prescribed by: DENISE MULLEN on 09/06/21 1222 Hydrocodone Bit/Acetaminophen (Lortab 5 Mg Tablet) 1 Tab Tab, 1 EACH PO Q4H PRN for PAIN-MODERATE Prescribed by: GUILLE AYALA on 06/04/19 2135 Metronidazole (Flagyl) 500 Mg Tablet, 500 MG PO TID Prescribed by: JENS OLGUIN on 09/03/21 1228 Ondansetron (Ondansetron Odt) 4 Mg Tab.rapdis, 4 MG PO Q4H PRN for NAUSEA/VOMITING Prescribed by: DENISE MULLEN on 09/06/21 1222 Ondansetron (Ondansetron Odt) 4 Mg Tab.rapdis, 4 MG SL Q4H PRN for NAUSEA/VOMITING Prescribed by: DENISE MULLEN on 01/26/23 1835 Past Xfmgdge-Ywgbbx-Msllys Hx Patient Social History Marrital Status: single Employed/Student: retired Smoking Status: Never a Smoker Past Medical History High Cholesterol, Hypertension Review of Systems Constitutional: see HPI Gastrointestinal: abdominal pain, nausea, vomiting Physical Exam General Appearance: No Apparent Distress, WD/WN, Chronically ill Respiratory: Lungs Clear, Normal Breath Sounds Cardiovascular: Regular Rate, Rhythm Neurologic/Psychiatric: Alert, Oriented x3 Assessment/Plan Assessment and Plan Assessment: Acute pancreatitis Cholelithiasis Nausea and vomiting Plan: Appreciate general surgery Supervisory-Addendum Brief Verification & Attestation Participated in pt care: history, MDM, physical Personally performed: exam, history, MDM, supervision of care Care discussed with: Medical Student Procedures: n/a Results interpretation: Verified all documentation Verification and Attestation of Medical Student E/M Service A medical student performed and documented this service in my presence. I reviewed and verified all information documented by the medical student and made modifications to such information, when appropriate. I personally performed the physical exam and medical decision making. Na Godoy Aug 06, 2023,19:54 SATYA ORNELAS Aug 06, 2023 14:16 NA GODOY DO Aug 06, 2023 19:57
[2023-08-06] MEDS ORDERED: FLU HIGH DOSE (65+ YOA) 240 MCG/0.7 ML 2023-24 (FLUZONE) IM ONE (15:00)
[2023-08-06 16:44] VITALS: BP 122/66
[2023-08-06] MEDS: inSUlin ASPART 1 UNIT/0.01 ML (PER UNIT) SC SCH ×2 (16:45→20:52)
--- NOTE | 2023-08-06 16:49 | Progress Note-Pre Operative ---
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
--- NOTE | 2023-08-06 17:08 | CONSULTATION REPORT ---
DATE OF SERVICE: 08/06/2023 ATTENDING PRIMARY CARE PHYSICIAN: Dr. Ana Hansen. ADMITTING PHYSICIAN: Dr. Goodrich. HISTORY OF PRESENT ILLNESS: The patient is an 82-year-old female who presented to the Emergency Department this morning with right upper abdominal quadrant pain. She states that she also felt nauseous and did have one small episode of emesis, which was bilious in nature. She states that she has had similar milder symptoms before in the past; however, approximately 2 years ago had a more significant episode and was seen by Surgery at [facility] and was found to have gallstones; however, at that time she did not want to proceed with surgery. Again, upon further questioning, she reports that this discomfort with associated nausea has been an ongoing issue and has worsened in more recent months. Again, a CT scan was performed, which did show multiple gallstones. She also did have a slightly elevated pancreatic enzyme levels; however, her total bilirubin is normal. PAST MEDICAL HISTORY: Symptomatic cholelithiasis, gastroesophageal reflux disease, diverticulosis, some form of cancer of the spine diagnosed at age 10 and this was followed by a treatment modality encompassing radiation. PAST SURGICAL HISTORY: Hysterectomy, multiple skin lesion removal. ALLERGIES: SULFA, AMOXICILLIN. MEDICATIONS: Ciprofloxacin, Flagyl, dicyclomine 20 mg q.i.d. p.r.n., hydrocodone 5 mg p.r.n., Zofran 4 mg q.4 hours p.r.n. SOCIAL HISTORY: Negative smoke. Social alcohol. FAMILY HISTORY: Noncontributory. VITAL SIGNS: Temperature 37.0, blood pressure 137/69, pulse 85, respirations 18, pulse ox 99% on room air. REVIEW OF SYSTEMS: The patient is a well-nourished female in no acute distress. She is not experiencing shortness of breath or difficulty breathing. No cough or sputum production. Intermittent episodes of right upper abdominal quadrant pain with nausea and small episode of emesis, which was bilious in nature. No hematemesis, no coffee-ground emesis. No diarrhea or constipation. No red blood per rectum, no dark tarry stools. No fever or chills, no recent inadvertent weight loss. All other review of systems negative. PHYSICAL EXAMINATION: CHEST: Clear. Good breath sounds bilaterally. HEART: Regular. No murmurs. EXTREMITIES: No lower extremity edema. Negative Homans sign. HEENT: No scleral icterus. No cervical lymphadenopathy. ABDOMEN: Soft, nondistended. There is pain in the right upper abdominal quadrant upon deep palpation with voluntary guarding, no rebound. No hernias. SKIN: Warm, dry. LABORATORY DATA: WBC 12.8, hemoglobin 14.1, hematocrit 45, platelets [ ]. BUN 17, creatinine 0.86, total bilirubin 0.5. Amylase 904. Lipase 3347. ASSESSMENT AND PLAN: An 82-year-old female with symptomatic chronic calculous cholecystitis as well as previous gallstone pancreatitis. Natural history of gallbladder disease was explained to the patient as well as the risks and benefits of surgery. She is in full understanding of this and would like to proceed with a laparoscopic cholecystectomy, which we will schedule on this admission. Job ID: [id number] DocumentID: [id number] Dictated Date: 08/06/2023 16:38:15 V Belt Skiver Date: 08/06/2023 17:05:00 Dictated By: SHAWN JARAMILLO MD
--- NOTE | 2023-08-06 17:12 | Diagnostic Imaging Report ---
PROCEDURE: US Venous Lower Ext Taurus. TECHNIQUE: Multiple real-time grayscale images were obtained over the lower extremities in various projections, bilaterally. Additional duplex Doppler and color Doppler images were also obtained. INDICATION: Lower extremity pain and edema. COMPARISON: None. FINDINGS: The bilateral common femoral vein, femoral vein, deep femoral vein, and popliteal vein are normal in appearance. These vessels show normal compressibility, color flow and Doppler augmentation. The visualized deep calf veins demonstrate no distinct intraluminal thrombus. IMPRESSION: 1. No sonographic evidence of deep venous thrombosis in the bilateral lower extremities. Dictated by: Dictated on workstation # [id number]
--- NOTE | 2023-08-06 17:15 | Diagnostic Imaging Report ---
INDICATION: Pancreatitis. Gallstones. PROCEDURE: Ultrasound abdomen complete. TECHNIQUE: Multiple real-time grayscale images were obtained of the abdomen in various projections. COMPARISON: CT performed earlier the same date. FINDINGS: The liver is normal in size, shape and echotexture. There are no focal lesions. No intra or extrahepatic biliary dilatation is present. The common bile duct is dilated and measures 0.9 cm. Gallbladder stones are seen within the gallbladder lumen, the largest measuring 3.3 cm. There is wall thickening of the gallbladder measuring 0.4 cm. The sonographic Will's sign is negative. The visualized portions of the head and proximal body of the pancreas are within normal limits. No pancreatic ductal dilation is seen. The distal body and tail are not well visualized due to overlying bowel gas. Both kidneys are normal in size and echogenicity. The cortical thickness and the corticomedullary differentiation is well maintained. The right kidney measures 8.2 cm. The left kidney measures 8.3 cm. Simple cyst is seen in the superior pole of the left kidney measuring 2.6 x 1.1 x 1.3 cm. There is no evidence of calculi, focal mass or hydronephrosis. The spleen is not enlarged. The visualized upper aorta and IVC are normal in course and caliber. There is no ascites in the upper abdomen. IMPRESSION: 1. Cholelithiasis with gallbladder wall thickening. However, the sonographic Will's sign is negative. Recommend correlation with laboratory values and physical exam and surgical consultation to further evaluate. MRCP could also be performed to further evaluate. Dictated by: Dictated on workstation # [id number]
[2023-08-06 19:18] VITALS: BP 131/51
[2023-08-06] MEDS: DOCUSATE SODIUM 100 MG CAPSULE PO SCH (19:40)
[2023-08-06] MEDS: SENNOSIDES 8.6 MG TABLET PO SCH (19:41)
[2023-08-06 23:43] VITALS: BP 128/61
[2023-08-07] VITALS (12 sets, daily range): BP systolic 137–179; BP diastolic 64–90
[2023-08-07] MEDS: ENOXAPARIN 60 MG/0.6 ML SYRINGE SC SCH ×2 (01:24→13:00)
[2023-08-07] MEDS: NS IV 1000 ML 1,000 ML IV SCH ×2 (02:46→11:15)
[2023-08-07 05:32] LABS: BASOPHILS # (AUTO) 0.1 10^3/uL (0.0-0.1); BASOPHILS % (AUTO) 1 % (0-10); EOSINOPHILS # (AUTO) 1.4 10^3/uL (0.0-0.3); EOSINOPHILS % (AUTO) 14 % (0-10); HEMATOCRIT 33 % (35-52); HEMOGLOBIN 10.5 g/dL (11.5-16.0); LYMPHOCYTES # (AUTO) 2.5 10^3/uL (1.0-4.0); LYMPHOCYTES % (AUTO) 25 % (12-44); MEAN CORPUSCULAR HEMOGLOBIN 26 pg (25-34); MEAN CORPUSCULAR HGB CONC 32 g/dL (32-36); MEAN CORPUSCULAR VOLUME 82 fL (80-99); MEAN PLATELET VOLUME 9.7 fL (9.0-12.2); MONOCYTES # (AUTO) 0.7 10^3/uL (0.0-1.0); MONOCYTES % (AUTO) 7 % (0-12); NEUTROPHILS # (AUTO) 5.5 10^3/uL (1.8-7.8); NEUTROPHILS % (AUTO) 54 % (42-75); PLATELET COUNT 324 10^3/uL (130-400); WHITE BLOOD COUNT 10.2 10^3/uL (4.3-11.0)
[2023-08-07] MEDS: inSUlin ASPART 1 UNIT/0.01 ML (PER UNIT) SC SCH ×4 (05:41→20:46)
[2023-08-07 05:58] LABS: ALBUMIN 3.3 GM/DL (3.2-4.5); BILIRUBIN,TOTAL 0.4 MG/DL (0.1-1.0); CALCIUM 8.1 MG/DL (8.5-10.1); CREATININE SERUM 0.7 MG/DL (0.60-1.30); POTASSIUM 3.4 MMOL/L (3.6-5.0)
[2023-08-07 06:17] LABS: EOSINOPHILS % (MANUAL) 15 %; LYMPHOCYTES % (MANUAL) 21 %; MONOCYTES % (MANUAL) 9 %; NEUTROPHILS % (MANUAL) 55 %; RBC MORPH NORMAL
[2023-08-07] MEDS: SENNOSIDES 8.6 MG TABLET PO SCH ×2 (08:31→20:46)
[2023-08-07] MEDS: DOCUSATE SODIUM 100 MG CAPSULE PO SCH ×2 (08:31→20:47)
[2023-08-07] MEDS ORDERED: LIDOCAINE/EPI 1%-1:200,000 (XYLOCAINE) 30 ML VIAL ONE (10:15)
--- NOTE | 2023-08-07 10:29 | Progress Note ---
SATYA ORNELAS 08/07/23 1029: Subjective Date Seen by a Provider: Aug 07, 2023 Time Seen by a Provider: 08:55 Subjective/Events-last exam 08/07/2023: CC: Pancreatitis HPI/update: Allison, 82F, says that she slept well last night. She notes that the pain in her sides and stomach is not as bad. Additionally, she notes that she has discussed surgery with Dr. Goodson. Allison appears to understands what the surgery entails and is happy that there is a solution to her problems. She has been NPO. Allison notes that she did have an episode of loose stool that appeared to be green in color. Other than this, she has no concerns. Patient appears tired and is resting. Her mood appears to be good. Allison notes that her surgery should occur around 11am. She will have a laproscopic cholecystectomy. She believes that she will be able to return home after this. Of note, her lipase has improved tremendously since yesterday. Hospital Course: CC: Pancreatitis Allison is an 82 year old female that presented to the ER on 08/06 after she had been feeling clammy and lightheaded at home. She was able to have her vitals checked by a family member, but didn't feel well so she went to the ED via her private vehicle. She was able to walk without issues and endorses symptoms of diarrhea on 08/05 followed by nausea and vomitting on 08/06. She noted that the emesis was bilious in nature. Allison also noted a similar episode 2 years ago in which it was discovered that she had a large gallstone in her gallbladder. In the ED a CT was performed which found that she has a gallstone. It was also not ed that there didn't appear to be any pancreatic edema. There were no signs of any necrosis or free air. She had labs drawn which revealed that she had elevated amylase (904) and lipase (3347) which indicated acute pancreatitis. For treatment of this issue, she was placed on high flow IV fluids and clear liquids diet. She was admitted to the MED/SURG unit. Here she was treated by the medical team and a surgery consult was ordered. Dr. Goodson decided that a laproscopic cholecystectomy would be a good option for treatment. 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 The medical benefits of removal outweigh the risk especially when considering this is a recurrent condition that Allison has dealt with. Surgery is to be performed on 08/07. Additionally, her lipase on 08/07 has improved significantly down to 70. This has indicated that her acute pancreatitis is being treated, but surgery is the best option to prevent recurrence of this issue. Following surgery, due to its minimal invasiveness, she should be able to return home where she has support. Allison is to follow discharge instructions based on Dr. Marcos recommendation. Furthermore, outside of her pancreatic concerns, it was found during her CT that there are R- upper lobe nodules in her lungs that should receive a repeat CT in 6 months. This can be coordinated with her PCP. Allison is advised to notify of any changes and continue follow up with Dr. Goodson and her PCP for her pancreatitis and subsequent cholecystectomy. Review of Systems General: Chills; No Night Sweats, No Fatigue, No Malaise, No Appetite, No Other HEENT: No Head Aches, No Visual Changes, No Eye Pain, No Ear Pain, No Dysphasia, No Sinus Congestion, No Post Nasal Drip, No Sore Throat, No Other Pulmonary: No Dyspnea, No Cough, No Pleuritic Chest Pain, No Other Cardiovascular: No: Chest Pain, Palpitations, Orthopnea, Paroxysmal Noc. Dyspnea, Edema, Lt Headedness, Other Gastrointestinal: Abdominal Pain, Diarrhea; No: Nausea, Vomiting, Constipation, Melena, Hematochezia, Other Genitourinary: No Dysuria; Frequency (increased, likely due to increased fluids via IV); No Incontinence, No Hematuria, No Retention, No Other Musculoskeletal: No: other, neck pain, shoulder pain, arm pain, back pain, hand pain, leg pain, foot pain Neurological: No: Weakness, Numbness, Incoordination, Change in speech, Confusion, Seizures, Other Objective Exam Last Set of Vital Signs Vital Signs Date Time Temp Pulse Resp B/P (MAP) Pulse Ox O2 Delivery O2 Flow Rate FiO2 08/07/23 09:52 95 Room Air 08/07/23 07:20 36.9 90 16 137/75 (95) Capillary Refill : Less Than 3 Seconds I&O Intake and Output 08/06/23 23:59 Intake Total 975 ml Output Total 860 ml Balance 115 ml Intake Oral 975 ml Output Urine Total 860 ml Daily Weight Change Unsure General: Alert, Oriented X3, Cooperative, No Acute Distress HEENT: Atraumatic, PERRLA Neck: Supple, No JVD, No Thyromegaly, +2 Carotid Pulse No Bruit Lungs: Clear to Auscultation, Normal Air Movement Heart: Regular Rate, Normal S1, Normal S2 Abdomen: Normal Bowel Sounds, Soft, Other (tender to palpation) Extremities: No Clubbing, No Cyanosis, No Edema, Normal Pulses Skin: No Rashes, No Breakdown, No Significant Lesion Neuro: Normal Gait, Normal Speech, Normal Tone, Sensation Intact Results Lab Laboratory Tests 08/06/23 11:16: Urine Color YELLOW, Urine Clarity CLEAR, Urine pH 5.5, Urine Specific [place] 1.020, Urine Protein NEGATIVE, Urine Glucose (UA) NEGATIVE, Urine Ketones NEGATIVE, Urine Nitrite NEGATIVE, Urine Bilirubin NEGATIVE, Urine Urobilinogen 0 .2, Urine Leukocyte Esterase NEGATIVE, Urine RBC (Auto) NEGATIVE, Urine RBC NONE, Urine WBC NONE, Urine Crystals NONE, Urine Bacteria NEGATIVE, Urine Casts NONE, Urine Mucus NEGATIVE, Urine Culture Indicated NO 08/06/23 16:48: Glucometer 98 08/06/23 20:04: Glucometer 169H 08/07/23 05:09: White Blood Count 10.2, Red Blood Count 4.01, Hemoglobin 10.5#L, Hematocrit 33L, Mean Corpuscular Volume 82, Mean Corpuscular Hemoglobin 26, Mean Corpuscular Hemoglobin Concent 32, Red Cell Distribution Width 15.9H, Platelet Count 324, Mean Platelet Volume 9.7, Immature Granulocyte % (Auto) 0, Neutrophils (%) (Auto) 54, Lymphocytes (%) (Auto) 25, Monocytes (%) (Auto) 7, Eosinophils (%) (Auto) 14H, Basophils (%) (Auto) 1, Neutrophils # (Auto) 5.5, Lymphocytes # (Auto) 2.5, Monocytes # (Auto) 0.7, Eosinophils # (Auto) 1.4H, Basophils # (Auto) 0.1, Immature Granulocyte # (Auto) 0.0, Neutrophils % (Manual) 55, Lymphocytes % (Manual) 21, Monocytes % (Manual) 9, Eosinophils % (Manual) 15, Blood Morphology Comment NORMAL, Sodium Level 142, Potassium Level 3.4L, Chloride Level 112H, Carbon Dioxide Level 25, Anion Gap 5, Blood Urea Nitrogen 10, Creatinine 0.70, Estimat Glomerular Filtration Rate 87, BUN/Creatinine Ratio 14, Glucose Level 86, Calcium Level 8.1L, Corrected Calcium 8.7, Total Bilirubin 0.4, Aspartate Amino Transf (AST/SGOT) 18, Alanine Aminotransferase (ALT/SGPT) 13, Alkaline Phosphatase 66, Total Protein 6.0L, Albumin 3.3, Lipase 70 08/07/23 05:27: Glucometer 81 Assessment/Plan Assessment/Plan Assess & Plan/Chief Complaint 08/07/2023: Assessment: * Gallstone Pancreatitis * GERD * Diverticulosis * Nausea Plan: * Laproscopic Cholecystectomy with Dr. Goodson * IV Fluids * NPO * Supportive medication * F/U with PCP and Dr. Goodson Final Diagnosis Gallstone Pancreatitis Diagnosis/Problems Diagnosis/Problems (1) Pancreatitis Status: Acute Assessment & Plan: IV Fluids, Clear Fluids Qualifiers: Qualified Codes: K85.10 - Biliary acute pancreatitis without necrosis or infection (2) Cholelithiasis Status: Chronic Assessment & Plan: Surgery Consult Qualifiers: Qualified Codes: K80.20 - Calculus of gallbladder without cholecystitis without obstruction (3) Nausea vomiting and diarrhea Status: Acute Assessment & Plan: Supportive Tx Clinical Quality Measures Admission Status Admission Dx 08/06/2023: Assessment: * Acute Pancreatitis * Cholelithiasis * Nausea/ Vomitting * Diarrhea * hx of cancer Plan: * IV Fluids * Clear fluids diet * US of gallbladder * Lipid Panel * Surgery consult * HIDA Scan * NA Cr DO 08/07/231953: Assessment/Plan Assessment/Plan Assess & Plan/Chief Complaint Cholecystectomy today Appreciate general surgery Supportive care Supervisory-Addendum Brief Verification & Attestation Participated in pt care: history, MDM, physical Personally performed: exam, history, MDM, supervision of care Care discussed with: Medical Student Procedures: n/a Results interpretation: Verified all documentation Verification and Attestation of Medical Student E/M Service A medical student performed and documented this service in my presence. I reviewed and verified all information documented by the medical student and made modifications to such information, when appropriate. I personally performed the physical exam and medical decision making. Na Godoy Aug 07, 2023,19:54 SATYA ORNELAS Aug 07, 2023 10:29 NA GODOY DO Aug 07, 2023 19:54
[2023-08-07] MEDS ORDERED: CETI10TA17 PO (11:20)
[2023-08-07] MEDS ORDERED: FAMO20TA5 PO (11:20)
[2023-08-07] MEDS ORDERED: MULT-1054 PO (11:20)
[2023-08-07] MEDS ORDERED: CHOL200052 PO (11:20)
[2023-08-07] MEDS ORDERED: CRAN1CAP11 PO (11:20)
[2023-08-07] MEDS ORDERED: L. A1CAP11 PO (11:20)
[2023-08-07] MEDS ORDERED: VANCOMYCIN 1000 MG/VIAL ONE (12:02)
[2023-08-07] MEDS ORDERED: NS IV 500 ML 500 ML ONE (12:05)
[2023-08-07] MEDS ORDERED: NS IV NR (12:15)
[2023-08-07] MEDS ORDERED: VANCOMYCIN IV NR (12:15)
[2023-08-07] MEDS ORDERED: LACTATED RINGERS 1,000 ML 1,000 ML IV PRN (12:30)
[2023-08-07] MEDS ORDERED: fentaNYL INJECTION 100 MCG/2 ML VIAL ONE ×2 (12:33→13:47)
[2023-08-07] MEDS ORDERED: LIDOCAINE PF 2% 5 ML VIAL ONE (12:33)
[2023-08-07] MEDS ORDERED: SEVOFLURANE (ULTANE) 15 ML INHAL SOLN ONE (12:33)
[2023-08-07] MEDS ORDERED: proPOfol INJECTION 200 MG/20 ML VIAL IV ONE (12:33)
[2023-08-07] MEDS ORDERED: ROCURONIUM 50 MG/5 ML VIAL IV ONE (12:33)
[2023-08-07] MEDS ORDERED: ONDANSETRON INJECTION 4 MG/2 ML (SDV) ONE (12:33)
[2023-08-07] MEDS ORDERED: dexAMETHasone INJ 10 MG/ML 1 ML VIAL ONE (12:33)
--- NOTE | 2023-08-07 13:43 | Progress Note-Post Operative ---
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
--- NOTE | 2023-08-07 13:43 | Anesthesia-General Post-Op ---
General Patient Condition Mental Status/LOC: Same as Preop Cardiovascular: Satisfactory Nausea/Vomiting: Absent Respiratory: Satisfactory Pain: Controlled Complications: Absent Post Op Complications Complications None Follow Up Care/Instructions Patient Instructions None needed. Anesthesia/Patient Condition Patient Condition Patient is doing well, no complaints, stable vital signs, no apparent adverse anesthesia problems. No complications reported per nursing. HENRY DUNBAR CRNA Aug 07, 2023 13:43
[2023-08-07] MEDS ORDERED: HYDROcodone/ACETAMINOPHEN 5 MG/325 MG TABLET PO PRN (13:45)
[2023-08-07] MEDS ORDERED: ONDANSETRON INJECTION 4 MG/2 ML (SDV) IVP PRN (13:45)
[2023-08-07] MEDS ORDERED: morphine INJ 4 MG/ML 1 ML (VIAL/SYRINGE) IVP PRN (13:45)
[2023-08-07] MEDS ORDERED: fentaNYL INJECTION 100 MCG/2 ML VIAL IVP ONE (13:45)
[2023-08-07] MEDS ORDERED: ACHD5005 PO (13:54)
--- NOTE | 2023-08-07 13:55 | Discharge Inst-Surgical ---
D/C Lap Instructions-ELLA New, Converted, or Re-Newed RX: RX on Chart Follow Up Appt in 2 weeks Activity as tolerated No driving for 24 hours No driving while on pain medications Incentive Spirometry use every 2 hours while awake Regular Diet Symptoms to Report: Fever over 101 degree F, Nausea/Vomiting Infection Signs and Symptoms to report: Increased redness, Foul odor of wound, Increased drainage Bathing instructions: May shower Operative Area Clean/Dry; Keep incision clean/dry If any problems/questions: Contact your physician or go to Emergency Room SHAWN JARAMILLO MD Aug 07, 2023 13:55
[2023-08-07] MEDS: ACETAMINOPHEN 325 MG TABLET PO PRN ×2 (16:41→23:19)
[2023-08-07] MEDS ORDERED: LORATADINE 10 MG TABLET PO SCH (21:00)
[2023-08-07] MEDS ORDERED: NON-FORMULARY MEDICATION 1 EA EA (Cetirizine HCl 10 MG) PO SCH (21:00)
[2023-08-07] MEDS ORDERED: FAMOTIDINE 20 MG TABLET PO SCH (21:00)
--- NOTE | 2023-08-07 21:07 | OPERATIVE REPORT ---
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 PROCEDURE: Laparoscopic cholecystectomy. SURGEON: Shanw Jaramillo MD CORPORATE BANKING OFFICER: Joshua Parra APRN ANESTHESIA: General endotracheal. ESTIMATED BLOOD LOSS: Minimal. FINDINGS: Thick bile and solitary large gallstone. DISPOSITION: The patient tolerated the procedure well. INDICATIONS: The patient is an 82-year-old female who presented to the Emergency Department with right upper abdominal quadrant pain with nausea and one episode of emesis. She states that this was bilious in nature. She has had some symptoms before in the past over the past 2 years and also did have another significant episode approximately a year ago and was found to have gallstones; however, did not want to proceed with surgery at the time. She states again that she has had more frequent as well as more severe episodes in the past few years. A CT scan was performed, which did show gallstones. She also did have a slightly elevated pancreatic enzyme level; however, her total bilirubin was normal, likely consistent with a previous gallstone pancreatitis, which had passed and resolved on its own. DESCRIPTION OF PROCEDURE: The patient was brought to the operating room, laid supine on the table. After adequate IV pain and sedative medications and general endotracheal intubation, the abdomen was prepped and draped in standard surgical fashion. A 0.5% Marcaine with epinephrine was then used to anesthetize the overlying skin in the left upper abdominal quadrant and a transverse skin incision made using a #15 blade. An 0 silk suture was applied to the medial aspect of the incision for retraction and a Veress needle inserted with a low opening pressure of 0 mmHg and the abdomen was then insufflated to 15 mmHg pressure. The Veress needle removed and a 5 mm trocar placed followed by a 5 mm 45-degree angle laparoscope visualizing the peritoneal cavity. A 4-quadrant abdominal exploration was performed. The liver, gallbladder, omentum and small bowel appeared normal. Under direct visualization, we then proceeded to place a supraumbilical 10 mm port after the skin and peritoneal lining were anesthetized using 0.5% Marcaine with epinephrine and a transverse skin incision made using a #15 blade. In a similar manner, a right upper abdominal quadrant 5 mm port was placed. The patient was then placed in reverse Trendelenburg position as well as plane right side up, left side down. The fundus of the gallbladder was then retracted anteriorly and superiorly. The hepatoduodenal ligament was then dissected using blunt dissection as well as electrocautery on the hook instrument as well as the [place] dissector. The entire critical view of safety was identified including the triangle of [place] as well as the cystic duct and artery as the only 2 structures going into the gallbladder as well as the cystic plate behind the proximal gallbladder. A timeout was then taken and the cystic duct and artery were then clipped proximally and distally and cut with EndoShears. The gallbladder was then dissected off of the liver bed using cautery on the hook instrument with visualization of good hemostasis as well as no leaking ducts of Luschka. The gallbladder was removed through the 10 mm port site using an EndoCatch bag. The 10 mm port site fascia and peritoneum were then closed under direct visualization using a Juan Francisco-Arthur device and an 0 Vicryl suture. The abdomen was desufflated and the remaining ports were removed. All skin incisions were closed using 4-0 Monocryl running subcuticular sutures. Wounds were then cleaned and covered with Dermabond. The patient tolerated the procedure well. We will start IV and oral pain medication as well as a clear liquid diet. We will then admit her back to the floor and advance her diet as tolerated. We will also keep her overnight to continue to monitor her pain as well as ambulatory status and bowel function and when she is tolerating a diet and has good pain control and is ambulating well, we will discharge her home. Job ID: [id number] DocumentID: [id number] Dictated Date: 08/07/2023 13:50:14 Industrial Therapist Date: 08/07/2023 21:05:00 Dictated By: SHAWN JARAMILLO MD
[2023-08-08] MEDS: ENOXAPARIN 60 MG/0.6 ML SYRINGE SC SCH (00:05)
[2023-08-08 03:44] VITALS: BP 130/71
[2023-08-08] MEDS: inSUlin ASPART 1 UNIT/0.01 ML (PER UNIT) SC SCH ×2 (05:32→11:44)
[2023-08-08 06:15] LABS: BASOPHILS # (AUTO) 0.1 10^3/uL (0.0-0.1); BASOPHILS % (AUTO) 0 % (0-10); EOSINOPHILS # (AUTO) 0.2 10^3/uL (0.0-0.3); EOSINOPHILS % (AUTO) 1 % (0-10); HEMATOCRIT 38 % (35-52); HEMOGLOBIN 12.2 g/dL (11.5-16.0); LYMPHOCYTES # (AUTO) 1.9 10^3/uL (1.0-4.0); LYMPHOCYTES % (AUTO) 12 % (12-44); MEAN CORPUSCULAR HEMOGLOBIN 27 pg (25-34); MEAN CORPUSCULAR HGB CONC 32 g/dL (32-36); MEAN CORPUSCULAR VOLUME 83 fL (80-99); MONOCYTES # (AUTO) 1.1 10^3/uL (0.0-1.0); MONOCYTES % (AUTO) 7 % (0-12); NEUTROPHILS # (AUTO) 12.8 10^3/uL (1.8-7.8); NEUTROPHILS % (AUTO) 79 % (42-75); PLATELET COUNT 342 10^3/uL (130-400); WHITE BLOOD COUNT 16.1 10^3/uL (4.3-11.0)
[2023-08-08 06:41] LABS: ALBUMIN 3.5 GM/DL (3.2-4.5); BILIRUBIN,TOTAL 0.5 MG/DL (0.1-1.0); CALCIUM 8.3 MG/DL (8.5-10.1); CREATININE SERUM 0.74 MG/DL (0.60-1.30); POTASSIUM 3.5 MMOL/L (3.6-5.0); TOTAL PROTEIN 6.6 GM/DL (6.4-8.2)
[2023-08-08 07:48] VITALS: BP 143/72
[2023-08-08] MEDS ORDERED: [UNRECOGNIZED DRUG - OTHER] PO SCH (09:00)
[2023-08-08] MEDS ORDERED: NON-FORMULARY MEDICATION 1 EA EA (Cholecalciferol (Vitamin D3) (Vitamin D3) 100 MCG) PO SCH (09:00)
[2023-08-08] MEDS ORDERED: VITAMIN D3 25 MCG (1,000 UNITS) TABLET PO SCH (09:00)
[2023-08-08] MEDS: DOCUSATE SODIUM 100 MG CAPSULE PO SCH (09:06)
[2023-08-08] MEDS: SENNOSIDES 8.6 MG TABLET PO SCH (09:15)
--- NOTE | 2023-08-08 11:17 | Discharge Summary ---
Diagnosis/Chief Complaint Date of Admission Aug 06, 2023 at 12:25 Date of Discharge Discharge Date: Aug 08, 2023 Discharge Diagnosis Acute pancreatitis Cholelithiasis Reason Hospital Visit Chief complaint: Acute pancreatitis HPI: This is an 82-year-old female clinic patient of Dr. Hansen who presented with abdominal pain and nausea and vomiting diagnosed with acute on chronic pancreatitis. Apparently she had gallbladder disease diagnosed 2 years ago received a consultation from Dr. Torres in [place] and she chose not to have a cholecystectomy. currently she is doing much better but will consult Dr. Goodson after obtaining ultrasound. Discharge Summary Discharge Physical Examination Allergies: Coded Allergies: Sulfa (Sulfonamide Antibiotics) (Verified Allergy, Mild, rash, 08/06/23) amoxicillin (Verified Allergy, Mild, rash, 08/06/23) Vitals & I&Os Vital Signs Date Time Temp Pulse Resp B/P (MAP) Pulse Ox O2 Delivery O2 Flow Rate FiO2 08/08/23 13:23 37.6 107 18 136/74 94 Room Air 2.00 General Appearance: Alert, Oriented X3, Cooperative Respiratory: Clear to Auscultation Psych/Mental Status: Mental Status NL Hospital Course Was the Problem List Reviewed?: Yes Hospital Course: CC: Pancreatitis Allison is an 82 year old female that presented to the ER on 08/06 after she had been feeling clammy and lightheaded at home. She was able to have her vitals checked by a family member, but didn't feel well so she went to the ED via her private vehicle. She was able to walk without issues and endorses symptoms of diarrhea on 08/05 followed by nausea and vomitting on 08/06. She noted that the emesis was bilious in nature. Allison also noted a similar episode 2 years ago in which it was discovered that she had a large gallstone in her gallbladder. In the ED a CT was performed which found that she has a gallstone. It was also noted that there didn't appear to be any pancreatic edema. There were no signs of any necrosis or free air. She had labs drawn which revealed that she had gay vated amylase (904) and lipase (3347) which indicated acute pancreatitis. For treatment of this issue, she was placed on high flow IV fluids and clear liquids diet. She was admitted to the MED/SURG unit. Here she was treated by the medical team and a surgery consult was ordered. Dr. Goodson decided that a laproscopic cholecystectomy would be a good option for treatment. 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 The medical benefits of removal outweigh the risk especially when considering this is a recurrent condition that Allison has dealt with. Surgery is to be performed on 08/07. Additionally, her lipase on 08/07 has improved significantly down to 70. This has indicated that her acute pancreatitis is being treated, but surgery is the best option to prevent recurrence of this issue. Following surgery, due to its minimal invasiveness, she should be able to return home where she has support. Allison is to follow discharge instructions based on Dr. Marcos recommendation. Furthermore, outside of her pancreatic concerns, it was found during her CT that there are R- upper lobe nodules in her lungs that should receive a repeat CT in 6 months. This can be coordinated with her PCP. Allison is advised to notify of any changes and continue follow up with Dr. Goodson and her PCP for her pancreatitis and subsequent cholecystectomy. Labs (last 24 hrs) Laboratory Tests 08/06/23 09:59: White Blood Count 12.8H, Red Blood Count 5.35H, Hemoglobin 14.1, Hematocrit 45, Mean Corpuscular Volume 83, Mean Corpuscular Hemoglobin 26, Mean Corpuscular Hemoglobin Concent 32, Red Cell Distribution Width 16.5H, Platelet Count 437H, Mean Platelet Volume 9.7, Immature Granulocyte % (Auto) 0, Neutrophils (%) (Auto) 74, Lymphocytes (%) (Auto) 15, Monocytes (%) (Auto) 4, Eosinophils (%) (Auto) 6, Basophils (%) (Auto) 0, Neutrophils # (Auto) 9.5H, Lymphocytes # (Auto) 1.9, Monocytes # (Auto) 0.5, Eosinophils # (Auto) 0.8H, Basophils # (Auto) 0.0, Immature Granulocyte # (Auto) 0.0, Erythrocyte Sedimentation Rate 8, Prothrombin Time 12.6, INR Comment 0.9, Activated Partial Thromboplast Time 39H, D-Dimer 4.65H, Sodium Level 139, Potassium Level 3.7, Chloride Level 103, Carbon Dioxide Level 24, Anion Gap 12, Blood Urea Nitrogen 17, Creatinine 0.86, Estimat Glomerular Filtration Rate 68, BUN/Creatinine Ratio 20, Glucose Level 122H, Calcium Level 9.8, Corrected Calcium 9.5, Magnesium Level 1.8, Total Bilirubin 0.5, Aspartate Amino Transf (AST/SGOT) 25, Alanine Aminotransferase (ALT/SGPT) 18, Alkaline Phosphatase 94, Total Creatine Kinase 64, Creatine Kinase MB 3.7, Troponin I < 0.028, C-Reactive Protein High Sensitivity 0.47, B-Type Natriuretic Peptide 25.2, Total Protein 8.5H, Albumin 4.4, Amylase Level 904H, Lipase 3347H 08/06/23 10:08: Influenza Type A (RT-PCR) Not Detected, Influenza Type B (RT-PCR) Not Detected, SARS-CoV-2 RNA (RT-PCR) Not Detected 08/06/23 11:16: Urine Color YELLOW, Urine Clarity CLEAR, Urine pH 5.5, Urine Specific [place] 1.020, Urine Protein NEGATIVE, Urine Glucose (UA) NEGATIVE, Urine Ketones NEGATIVE, Urine Nitrite NEGATIVE, Urine Bilirubin NEGATIVE, Urine Urobilinogen 0.2, Urine Leukocyte Esterase NEGATIVE, Urine RBC (Auto) NEGATIVE, Urine RBC NONE, Urine WBC NONE, Urine Crystals NONE, Urine Bacteria NEGATIVE, Urine Casts NONE, Urine Mucus NEGATIVE, Urine Culture Indicated NO 08/06/23 16:48: Glucometer 98 08/06/23 20:04: Glucometer 169H 08/07/23 05:09: White Blood Count 10.2, Red Blood Count 4.01, Hemoglobin 10.5#L, Hematocrit 33L, Mean Corpuscular Volume 82, Mean Corpuscular Hemoglobin 26, Mean Corpuscular Hemoglobin Concent 32, Red Cell Distribution Width 15.9H, Platelet Count 324, Mean Platelet Volume 9.7, Immature Granulocyte % (Auto) 0, Neutrophils (%) (Auto) 54, Lymphocytes (%) (Auto) 25, Monocytes (%) (Auto) 7, Eosinophils (%) (Auto) 14H, Basophils (%) (Auto) 1, Neutrophils # (Auto) 5.5, Lymphocytes # (Auto) 2.5, Monocytes # (Auto) 0.7, Eosinophils # (Auto) 1.4H, Basophils # (Auto) 0.1, Immature Granulocyte # (Auto) 0.0, Neutrophils % (Manual) 55, Lymphocytes % (Manual) 21, Monocytes % (Manual) 9, Eosinophils % (Manual) 15, Blood Morphology Comment NORMAL, Sodium Level 142, Potassium Level 3.4L, Chloride Level 112H, Carbon Dioxide Level 25, Anion Gap 5, Blood Urea Nitrogen 10, Creatinine 0.70, Estimat Glomerular Filtration Rate 87, BUN/Creatinine Ratio 14, Glucose Level 86, Calcium Level 8.1L, Corrected Calcium 8.7, Total Bilirubin 0.4, Aspartate Amino Transf (AST/SGOT) 18, Alanine Aminotransferase (ALT/SGPT) 13, Alkaline Phosphatase 66, Total Protein 6.0L, Albumin 3.3, Lipase 70 08/07/23 05:27: Glucometer 81 08/07/23 16:09: Glucometer 118H 08/07/23 20:16: Glucometer 142H 08/08/23 05:23: Glucometer 114H 08/08/23 05:35: White Blood Count 16.1H, Red Blood Count 4.54, Hemoglobin 12.2, Hematocrit 38, Mean Corpuscular Volume 83, Mean Corpuscular Hemoglobin 27, Mean Corpuscular Hemoglobin Concent 32, Red Cell Distribution Width 16.2H, Platelet Count 342, Mean Platelet Volume 10.0, Immature Granulocyte % (Auto) 0, Neutrophils (%) (Auto) 79H, Lymphocytes (%) (Auto) 12, Monocytes (%) (Auto) 7, Eosinophils (%) (Auto) 1, Basophils (%) (Auto) 0, Neutrophils # (Auto) 12.8H, Lymphocytes # (Auto) 1.9, Monocytes # (Auto) 1.1H, Eosinophils # (Auto) 0.2, Basophils # (Auto) 0.1, Immature Granulocyte # (Auto) 0.1, Sodium Level 141, Potassium Level 3.5L, Chloride Level 109H, Carbon Dioxide Level 23, Anion Gap 9, Blood Urea Nitrogen 6L, Creatinine 0.74, Estimat Glomerular Filtration Rate 82, BUN/Creatinine Ratio 8, Glucose Level 109H, Calcium Level 8.3L, Corrected Calciu m 8.7, Total Bilirubin 0.5, Aspartate Amino Transf (AST/SGOT) 99H, Alanine Aminotransferase (ALT/SGPT) 69H, Alkaline Phosphatase 88, Total Protein 6.6, Albumin 3.5, Lipase 46 08/08/23 11:41: Glucometer 120H Pending Labs Laboratory Tests 08/06/23 09:59: White Blood Count 12.8, Red Blood Count 5.35, Hemoglobin 14.1, Hematocrit 45, Mean Corpuscular Volume 83, Mean Corpuscular Hemoglobin 26, Mean Corpuscular Hemoglobin Concent 32, Red Cell Distribution Width 16.5, Platelet Count 437, Mean Platelet Volume 9.7, Immature Granulocyte % (Auto) 0, Neutrophils (%) (Auto) 74, Lymphocytes (%) (Auto) 15, Monocytes (%) (Auto) 4, Eosinophils (%) (Auto) 6, Basophils (%) (Auto) 0, Neutrophils # (Auto) 9.5, Lymphocytes # (Auto) 1.9, Monocytes # (Auto) 0.5, Eosinophils # (Auto) 0.8, Basophils # (Auto) 0.0, Immature Granulocyte # (Auto) 0.0, Erythrocyte Sedimentation Rate 8, Prothrombin Time 12.6, INR Comment 0.9, Activated Partial Thromboplast Time 39, D-Dimer 4.65, Sodium Level 139, Potassium Level 3.7, Chloride Level 103, Carbon Dioxide Level 24, Anion Gap 12, Blood Urea Nitrogen 17, Creatinine 0.86, Estimat Glomerular Filtration Rate 68, BUN/Creatinine Ratio 20, Glucose Level 122, Calcium Level 9.8, Corrected Calcium 9.5, Magnesium Level 1.8, Total Bilirubin 0.5, Aspartate Amino Transf (AST/SGOT) 25, Alanine Aminotransferase (ALT/SGPT) 18, Alkaline Phosphatase 94, Total Creatine Kinase 64, Creatine Kinase MB 3.7, Troponin I < 0.028, C-Reactive Protein High Sensitivity 0.47, B-Type Natriuretic Peptide 25.2, Total Protein 8.5, Albumin 4.4, Amylase Level 904, Lipase 3347 08/06/23 10:08: Influenza Type A (RT-PCR) Not Detected, Influenza Type B (RT-PCR) Not Detected, SARS-CoV-2 RNA (RT-PCR) Not Detected 08/06/23 11:16: Urine Color YELLOW, Urine Clarity CLEAR, Urine pH 5.5, Urine Specific [place] 1.020, Urine Protein NEGATIVE, Urine Glucose (UA) NEGATIVE, Urine Ketones NEGATIVE, Urine Nitrite NEGATIVE, Urine Bilirubin NEGATIVE, Urine Urobilinogen 0.2, Urine Leukocyte Esterase NEGATIVE, Urine RBC (Auto) NEGATIVE, Urine RBC NONE, Urine WBC NONE, Urine Crystals NONE, Urine Bacteria NEGATIVE, Urine Casts NONE, Urine Mucus NEGATIVE, Urine Culture Indicated NO 08/06/23 16:48: Glucometer 98 08/06/23 20:04: Glucometer 169 08/07/23 05:09: White Blood Count 10.2, Red Blood Count 4.01, Hemoglobin 10.5, Hematocrit 33, Mean Corpuscular Volume 82, Mean Corpuscular Hemoglobin 26, Mean Corpuscular Hemoglobin Concent 32, Red Cell Distribution Width 15.9, Platelet Count 324, M vandana Platelet Volume 9.7, Immature Granulocyte % (Auto) 0, Neutrophils (%) (Auto) 54, Lymphocytes (%) (Auto) 25, Monocytes (%) (Auto) 7, Eosinophils (%) (Auto) 14, Basophils (%) (Auto) 1, Neutrophils # (Auto) 5.5, Lymphocytes # (Auto) 2.5, Monocytes # (Auto) 0.7, Eosinophils # (Auto) 1.4, Basophils # (Auto) 0.1, Immature Granulocyte # (Auto) 0.0, Neutrophils % (Manual) 55, Lymphocytes % (Manual) 21, Monocytes % (Manual) 9, Eosinophils % (Manual) 15, Blood Morphology Comment NORMAL, Sodium Level 142, Potassium Level 3.4, Chloride Level 112, Carbon Dioxide Level 25, Anion Gap 5, Blood Urea Nitrogen 10, Creatinine 0.70, Estimat Glomerular Filtration Rate 87, BUN/Creatinine Ratio 14, Glucose Level 86, Calcium Level 8.1, Corrected Calcium 8.7, Total Bilirubin 0.4, Aspartate Amino Transf (AST/SGOT) 18, Alanine Aminotransferase (ALT/SGPT) 13, Alkaline Phosphatase 66, Total Protein 6.0, Albumin 3.3, Lipase 70 08/07/23 05:27: Glucometer 81 08/07/23 16:09: Glucometer 118 08/07/23 20:16: Glucometer 142 08/08/23 05:23: Glucometer 114 08/08/23 05:35: White Blood Count 16.1, Red Blood Count 4.54, Hemoglobin 12.2, Hematocrit 38, Mean Corpuscular Volume 83, Mean Corpuscular Hemoglobin 27, Mean Corpuscular Hemoglobin Concent 32, Red Cell Distribution Width 16.2, Platelet Count 342, Mean Platelet Volume 10.0, Immature Granulocyte % (Auto) 0, Neutrophils (%) (Auto) 79, Lymphocytes (%) (Auto) 12, Monocytes (%) (Auto) 7, Eosinophils (%) (Auto) 1, Basophils (%) (Auto) 0, Neutrophils # (Auto) 12.8, Lymphocytes # (Auto) 1.9, Monocytes # (Auto) 1.1, Eosinophils # (Auto) 0.2, Basophils # (Auto) 0.1, Immature Granulocyte # (Auto) 0.1, Sodium Level 141, Potassium Level 3.5, Chloride Level 109, Carbon Dioxide Level 23, Anion Gap 9, Blood Urea Nitrogen 6, Creatinine 0.74, Estimat Glomerular Filtration Rate 82, BUN/Creatinine Ratio 8, Glucose Level 109, Calcium Level 8.3, Corrected Calcium 8.7, Total Bilirubin 0.5, Aspartate Amino Transf (AST/SGOT) 99, Alanine Aminotransferase (ALT/SGPT) 69, Alkaline Phosphatase 88, Total Protein 6.6, Albumin 3.5, Lipase 46 08/08/23 11:41: Glucometer 120 Discharge Home Medications: Active Scripts Active Hydrocodone-Acetamin 5-325 mg (Hydrocodone/Acetaminophen) 5 Mg-325 Mg Tablet 1 Tab PO Q4H PRN Reported Vitamin D3 (Cholecalciferol (Vitamin D3)) 50 Mcg (2000 Unit) Tablet 100 Mcg PO DAILY Hair, Skin & Nails (Multivitamin with Minerals) 1 Each Tablet 1 Each PO 1400 Probiotic Plus & Cranberry Cap (Cran/C/B.coag/Fos/L.acid/L.rha) 250 Mg-30 Mg- 39.5 Mg Capsule 1 Each PO DAILY Acidophilus Capsule (L. Acidophilus/Pectin, [place]) 7.5 Mg (30 Million Cell)-100 Mg Capsule 1 Each PO 1400 Cetirizine HCl 10 Mg Tablet 10 Mg PO HS Famotidine 20 Mg Tablet 20 Mg PO HS Instructions to patient/family Please see electronic discharge instructions given to patient. FABRIZIO GODOY DO Aug 08, 2023 11:17
[2023-08-08 11:43] VITALS: BP 136/74
[2023-08-08 13:23] VITALS: BP 136/74
[2023-08-08] MEDS ORDERED: MULTIVITAMIN WITH MINERALS PO SCH (14:00)
[2023-08-08] MEDS ORDERED: THERAPEUTIC MULTIVITAMIN W/MINERALS TABLET PO SCH (14:00)
[2023-08-08] MEDS ORDERED: [UNRECOGNIZED DRUG - OTHER] PO SCH (14:00)
[2023-08-08] MEDS ORDERED: LACTOBACILLUS ACIDOPHILUS (PROBIOTIC) CAPSULE PO SCH (14:00)
[2023-08-08] MEDS ORDERED: [UNRECOGNIZED DRUG - OTHER] PO SCH (14:00)
== END 2023-08-08 13:23 | disposition home or self-care (01) | DRG 418 ==
LOC: EDUNIT# 09:47 → ER 09:49 → 4TH 12:25
PROVIDERS: ADMIT Internal Medicine; ATTEND Internal Medicine
PROC: 0FT44ZZ Resection of Gallbladder, Percutaneous Endoscopic Approach (ICD-10-PCS; principal; 2023-08-07 12:37)
DX: K85.10 Biliary acute pancreatitis without necrosis or infection (principal); K80.10 Calculus of gallbladder with chronic cholecystitis without obstruction; K86.1 Other chronic pancreatitis; E78.00 Pure hypercholesterolemia, unspecified; K21.9 Gastro-esophageal reflux disease without esophagitis; K57.30 Diverticulosis of large intestine without perforation or abscess without bleeding; R91.1 Solitary pulmonary nodule; Z88.2 Allergy status to sulfonamides; Z20.822 Contact with and (suspected) exposure to COVID-19; Z79.899 Other long term (current) drug therapy; Z79.891 Long term (current) use of opiate analgesic; Z85.89 Personal history of malignant neoplasm of other organs and systems; Z85.828 Personal history of other malignant neoplasm of skin; Z88.1 Allergy status to other antibiotic agents
CPT/HCPCS: 36415; 71250; 74176; 76700; 80053; 81000; 82150; 82550; 82553; 82947; 83690; 83735; 83880; 84484; 85007; 85025; 85027; 85379; 85610; 85652; 85730; 86141; 87636; 93005; 93041; 93970; 94760